=== PATIENT | male | born 1980 | race American Indian/Alaskan Native ===

== ENCOUNTER 2024-10-06 06:13 | Day surgery (SDC) | payer OTHER, SELFPAY ==
[2024-10-06 06:25] VITALS: BMI 26.5
[2024-10-06 06:26] VITALS: BMI 26.5
[2024-10-06 06:29] VITALS: BP 156/107
[2024-10-06] MEDS: TYLENOL 1000 MG PO (06:37)
[2024-10-06 08:06] VITALS: BP 117/78
[2024-10-06 08:20] VITALS: BP 115/77
[2024-10-06 08:21] VITALS: BP 115/77
[2024-10-06 08:36] VITALS: BP 125/90
== END 2024-10-06 08:45 | disposition home or self-care (01) ==
LOC: SDS 06:13
PROVIDERS: ATTENDING PHYSICIAN Surgery; FAMILY PHYSICIAN Family Medicine
DX: L72.0 Epidermal cyst (principal)
CPT/HCPCS: 11406; 88304

== ENCOUNTER 2025-09-27 02:07 | Inpatient (IN) | payer OTHER, SELFPAY ==
[2025-09-26] VITALS (9 sets, daily range): BP systolic 167–202; BP diastolic 112–134; BMI 26.2
[2025-09-26 21:31] LABS: Glucose - Point of Care 105 mg/dl (70-99)
[2025-09-26 21:46] LABS: Hematocrit 42.9 % (39.0-52.0); Hemoglobin 15.3 g/dL (13.0-18.0); Mean Corp Hgb Conc. 35.7 g/dL (33.0-37.0); Mean Corpuscular Volume 83.6 fL (80.0-94.0); Nucleated Red Blood Cells % 0 % (-); Platelet Count 255 10^3/uL (130-400); Red Cell Dist. Width 12.4 % (11.5-14.5)
--- NOTE | 2025-09-26 21:52 | ED.CVA ---
History of Present Illness
General
Chief Complaint: CVA/TIA Symptoms
Time Seen by Provider: 09/26/25 21:32
Onset of Stroke Symptoms
Onset of symptoms known: Yes
Date of onset of symptoms: 09/26/25
History of Present Illness
History of Present Illness:
FOCUSED PAST MEDICAL HISTORY
- Hyperlipidemia
REVIEW OF OLD RECORDS
- 1 year ago, the patient had a sebaceous cyst removed surgically here at [facility]
Note:
CHIEF COMPLAINT(S)
Ringing in the ears, blurred vision, difficulty speaking.
HISTORY OF PRESENT ILLNESS
The patient is a 45-year-old male who presented with new-onset symptoms of ringing in the ears, blurred vision, and difficulty speaking. These symptoms began around 8:40 PM while the patient was in bed preparing to sleep. He reported that the
symptoms started suddenly while he was sitting up and watching television. The patient experienced difficulty in verbal communication, which improved by the time he was in the ambulance. He estimates that his speech difficulties lasted approximately
five minutes. During the current evaluation, the patient noted that he continued to have a headache and a left-sided visual field deficit.
PHYSICAL EXAM
General: Alert, no acute distress.
Skin: Warm, dry.
Head: Normocephalic, atraumatic.
Neck: Supple, trachea midline.
Eye Ears, Nose, Mouth, and Throat: Oral mucosa moist. Visual field deficit noted on left side of right eye.
Cardiovascular: Normal peripheral perfusion, No edema.
Respiratory: Respirations are non-labored.
Gastrointestinal: Abdomen nondistended.
Back: Normal range of motion, Normal alignment.
Musculoskeletal: Normal range of motion, normal strength.
Neurological: Alert and oriented to person, place, and time. Speech clear during examination. The patient has left-sided homonymous hemianopsia. Stroke scale 2.
Psychiatric: Cooperative, appropriate mood & affect.
PROBLEM LIST
Acute Problem: Sudden onset of visual disturbances and difficulty speaking, ringing in the ears.
PLAN
Initiate a stroke alert for further investigation of potential cerebrovascular event.
DIFFERENTIAL DIAGNOSIS
The Differential Diagnosis includes, in no particular order and is not limited to:
1. Transient Ischemic Attack (TIA)
2. Stroke
3. Migraine with aura
4. Vestibular disorders
5. Epileptic seizure
6. Multiple sclerosis
7. Brain tumor
8. Acute labyrinthitis
9. Menieres disease
10. Hypertensive crisis
RADIOLOGY
- CT head showed a 3.9 cm arachnoid cyst in the right side of the posterior fossa with mild mass effect right cerebellar hemisphere, no bleed. Perfusion reviewed with stroke neurologist at [facility] in which stroke neurologist, Dr. Teran. CTA head
neck shows acute complete occlusion of P3 right posterior cerebral artery
EKG
- Sinus rhythm rate of 110
LABS
- CBC and chemistries unremarkable
UPDATE
-SUMMARY OF ENCOUNTER
The patient, a 45-year-old male, was seen in the emergency department due to sudden-onset symptoms of difficulty speaking, ringing in the ears, and visual disturbances. A stroke alert was initiated because of a noted visual change on the left side.
A CT scan revealed a cyst near the cerebellum, which did not explain the visual changes. The patients stroke scale score was 2, with visual deficit being the main issue, and no bleeding or major vessel occlusion was found in imaging. Management
included considering anti-platelet medications and addressing the high blood pressure. The neurologist and hospitalist were notified for further management.
DISPOSITION
Admit.
ASSESSMENT
Potential stroke with sudden visual disturbances and difficulty speaking, possibly exacerbated by hypertensive crisis.
EMERGENCY TREATMENTS ADMINISTERED
Labetalol administered to reduce high blood pressure.
MANAGEMENT OF THE PATIENTS CARE WAS DISCUSSED WITH
[facility] stroke neurologist, Dr. Teran
Dr. Caldwell
PLAN
Plan includes hospitalization for monitoring, gradual reduction of blood pressure, and administration of anti-platelet medications as recommended by affiliated experts.
MEDICATION RECONCILIATION
Administered Medication: Labetalol.
Prescribed Medication: Anti-platelet medications as recommended for stroke prevention.
MEDICAL DECISION MAKING
-Complexity of Data Reviewed: Chronic conditions affecting care include the potential differential diagnoses such as Transient Ischemic Attack (TIA), stroke, migraine with aura, vestibular disorders, epileptic seizure, multiple sclerosis, brain
tumor, acute labyrinthitis, Meniere�s disease, and hypertensive crisis.
-Data:
Category 1:
CT scan was reviewed, showing a cyst near the cerebellum without major vessel occlusion or bleeding.
Category 3:
Discussion of management with neurology and hospitalist teams regarding appropriate hypertension management and stroke care.
-Risk:
Prescription medication was prescribed: Anti-platelet medications.
DIAGNOSIS
Acute left homonymous hemianopia
Acute ischemic CVA
I discussed case with stroke neurologist at approximately 10 PM. The recommendation was for DAPT with 600 mg of Plavix and 325 mg of aspirin. He also recommended to reduce the blood pressure by 25% at 24 hours. He reviewed the imaging.
Stroke neurologist called back and started interviewing the patient at about 10:42 PM via telestroke. The stroke neurologist called me back indicating that the patient actually just had a superior homonymous hemianopia
Phy Exam
Physical Exam
Physical Exam:
See HPI
Scores
NIH Stroke Score
Level of Consciousness: 0 - Alert
LOC Questions: 0-Answers both correctly (Did struggle with naming the month slightly)
LOC Commands: 0-Performs both correctly
Best Horizontal Gaze: 0-Normal
Visual Dominguez: 2=Full hemianopia
Facial Palsy: 0=Normal, symmetrical
Motor - Right Arm: 0=No drift 10 seconds
Motor - Left Arm: 0=No drift 10 seconds
Motor - Right Le-No drift 5 seconds
Motor - Left Le-No drift 5 seconds
Limb Ataxia: 0-Absent
Sensation: 0-Normal
Best Language: 0-No aphasia
Dysarthria: 0-Normal
Extinction and Inattention: 0-No abnormality
NIH Total Score:: 2
Course
Orders/Labs/Results
Orders:
Orders
09/26/25 21:32
Electrocardiogram (*1) Urgent
Reason for Study: Other
Other Reason for Exam: Possible Stroke
Bedside Glucose- Treatment ONCE
Cardiac Monitoring- Treatment ONCE
EKG- Treatment ONCE
IV Insert/Care/Rem.- Treatment PRN
O2 Therapy [RESP] Urgent
Titrate/Wean O2 to maintain O2 sat greater than (%): 93
Special Instructions: MAINTAIN CONTINUOUS O2 SATS > OR = 93%
09/26/25 21:35
CT BRAIN PERF STROKE ALERT Urgent
Comment:
Reason For Exam: BURCH, L field cut, resolved aphasia
CT HEAD STROKE ALERT W/o Cont Urgent
Comment:
Reason For Exam: BURCH, L field cut, resolved aphasia
CT HEAD/NECK ANG STROKE ALERT Urgent
Comment:
Reason For Exam: BURCH, L field cut, resolved aphasia
09/26/25 21:37
Complete Blood Count/With Diff Urgent
Comprehensive Metabolic Panel Urgent
PTT Urgent
Prothrombin Time Urgent
Troponin I Urgent
09/26/25 22:07
Labetalol HCl [Trandate] 10 mg IV NOW STA
09/26/25 22:18
Aspirin 325 mg PO NOW STA
Clopidogrel Bisulfate [Plavix] 600 mg PO NOW STA
09/26/25 23:12
Admit/Transfer Patient As Directed
Co-Sign Provider:
Level of Care: Inpatient admission
Assign to:: Telemetry
Physician / Group: Gavin
Diagnosis: Acute Stroke
Reason for Telemetry: CVA/TIA
Date to Stop Telemetry: 09/29/25
Time to Stop Telemetry: 11:00
Reason for Hospitalization: Brain MRI - Stroke Work-Up
Expected length of stay greater than two midnights?: Yes
ELOS- Estimated Length of Stay in days: 3
I certify the patient meets the requirements for IP care: Yes
09/26/25 23:13
PRN Pain Medication Management As Directed
May give lesser potent ordered pain med per pt: Yes
preference::
Protocol:: Medication orders for pain may be administered in a
manner that supports deferring to patient preference
when the pt is:
- Requesting an ordered lesser potent pain medication.
Least to most potent pain medications are defined
as: acetaminophen < NSAID < tramadol < opioids
(morphine, oxycodone, hydromorphone).
- Requesting a lesser dose of the same medication IF
ORDERED.
- Requesting a less intrusive route of administration
if both routes are prescribed by the provider (PO <
IV).
09/26/25 23:15
Code Status As Directed
Resuscitation Status: Full Code
09/26/25 23:22
0.9% Sodium Chloride 1000 ml [Nss] 1,000 ml IV 100 mls/hr
09/29/25 11:00
DC Protocol for Telemetry ONCE
Abnormal Lab Results
09/26/25 09/26/25
21:29 21:37
MPV 10.7 H fL
(7.4-10.4)
Abs Immat Gran (auto) 0.1 H 10^3/uL
(0-0.05)
Immature Gran % 1.1 H %
(0-0.5)
Neutrophils % 42.1 L %
(42.2-75.2)
Monocytes % 10.1 H %
(1.7-9.3)
Glucose 116 H mg/dl
(70-99)
POC Glucose 105 H mg/dl
(70-99)
09/26/25 21:37
09/26/25 21:37
Vital Signs
Initial and Last Documented VS:
Initial Vital Signs
BP
202/128
09/26/25 21:25
Last Documented Vital Signs
Temp Pulse Resp BP Pulse Ox
37.1 C 89 17 167/112 96
09/27/25 00:00 09/26/25 23:45 09/26/25 23:45 09/26/25 23:30 09/26/25 23:45
*Pulse Oximetry
SaO2: 99
Oxygen Mode of Delivery: Room air
Patient hypoxic: no
*Critical Care Note
Total Time (30-74mins, 75-104mins- exclusive of procedures): Not Applicable
ED Attending Note
-
Portions of this chart may have been created with voice recognition software.� Occasional wrong word or��sound alike� substitutions may have occurred due to the inherent limitations of voice recognition software.
Discharge Plan
Departure
Patient Disposition: Admit
Date of Disposition: 09/26/25
Time of Disposition: 23:43
Presentation/result/management discussed w/ accepting MD/DO: Hospitalist
Discharge Problem:
Hemianopia, homonymous, left
Prescriptions:
No Action
No Current Medications
0
Referrals:
NONE,* [Active, Internal Medicine]
Interventions
Interventions:
*Risk Screen - Suicide Last Done: 09/26/25 22:09
*General Assessment Last Done: 09/26/25 23:46
*Neglect/Abuse Screening Last Done: 09/26/25 22:09
*ED- Fall Risk Assessment Last Done: 09/26/25 22:09
*ED COVID-19 Vaccine History Last Done: 09/26/25 22:09
*ED Influenza Vaccine History Last Done: 09/26/25 22:09
*Nursing Disposition Last Done: 09/26/25 23:46
ED- Pulmonary Assessment Last Done: 09/26/25 21:55
ED- Neurological Assessment Last Done: 09/26/25 21:52
ED- Cardiac Assessment Last Done: 09/26/25 21:55
ED Swallowing Screen Last Done: 09/26/25 22:32
Discharge Date and Time
Discharge Date/Time: 09/27/25 00:21
Print Language: CZECH
[2025-09-26 21:53] LABS: INR 0.86; PT 12.2 Sec (11.4-14.6)
[2025-09-26 21:54] LABS: APTT 28.6 Sec (23.4-35.0)
[2025-09-26 22:00] LABS: ALT (SGPT) 25 U/L (0-50); AST (SGOT) 40 U/L (17-59); Albumin 4.9 g/dl (3.5-5.0); Alkaline Phosphatase 107 U/L (38-126); Blood Urea Nitrogen 12 mg/dl (9-20); Calcium 10.1 mg/dl (8.4-10.2); Carbon Dioxide 25 mmol/L (22-30); Chloride 101 mmol/L (98-107); Estimated Creatinine Clearance 122 ml/min; Glucose 116 mg/dl (70-99); Potassium 4.2 mmol/L (3.5-5.1); Sodium 135 mmol/L (135-145); Total Protein 8.2 g/dl (6.3-8.2); eGFR > 60.00
[2025-09-26 22:11] LABS: Troponin I < 0.012 ng/ml
[2025-09-26] MEDS: TRANDATE 10 MG IV (22:17)
[2025-09-26] MEDS: PLAVIX 600 MG PO (22:27)
[2025-09-26] MEDS: ASPIRIN 325 MG PO (22:27)
--- NOTE | 2025-09-26 23:19 | HPS.HSE ---
Addendum entered and electronically signed by Hamzah Alonso DO 09/26/25 23:53:
Patient seen and examined independently. Agree with findings and plan as set forth by Karla Burton PA-C.
Patient is a 45y M with no significant PMH and on no medications who presents to ED complaining of headache and vision changes. Patient states that he developed sudden onset of dizziness, ringing in the ears, R posterior headache and black spots
in L visual field. Symptoms started this evening around 8:40 PM. Patient reports previous episodes of transient vision changes, 'black spots' that have been occurring off-and-on for the past week or so. Patient presented to the ED for further
evaluation and treatment. he was noted to be markedly hypertensive.
Evaluation in the ED included CTA showing acute occlusion of R P3 segment and CT perfusion study showing correlating area of decreased perfusion in the R occipital lobe.
Case was reviewed with [facility] Tel[facility]. TNK was not recommended. Patient was started on DAPT.
Ass:
Acute R Occipital CVA
Hypertension
Plan:
Admit for further evaluation and treatment.
Continue DAPT. Check lipid panel, A1C, etc.
Follow neurologic exam for any changes.
Neurology evaluation.
MRI in AM. Echo.
PT / OT evaluations.
Adjust med regimen for improved BP control prior to discharge.
Permissive hypertension for now with PRN med available for BP > 220 systolic or 120 diastolic.
Original Note:
Family Physician
-
Family Physician: Prudencio Carrasquillo
Chief Complaint
-
Dizziness
History of Present Illness
Patient is a 45 y/o male without significant past medical history who presents with dizziness associated with ringing in the ears and black spots in visual field. Patient reports onset of symptoms around 8:40PM. Patient reports over the past week
he has had several transient episodes of black spots in his visual field. Today symptoms were much worse with dizziness, and a transient episodes of difficulty speaking prompting him to come to the emergency department for evaluation.
Medical History
Past Medical History
Past Medical History: Reports None
Past Surgical History: Reports Other
Additional Past Surgical History:
Fractured Hand Repair
Sebaceous Cyst Excision
Social History
Tobacco: Non-smoker
Alcohol: Occasional
Personal:
Living: With Family
Family History
Family History: Other (Father: Heart Disase)
Allergies / Home Medications
Allergies reflects when Allergies were last updated in [facility].
Home Medications with original date entered in [facility]
Allergy/Medication List:
Allergies
Allergy/AdvReac Type Severity Reaction Status Date / Time
No Known Allergies Allergy Verified 09/26/25 23:02
Home Medications
No Meds [No Current Medications] 09/26/25
Review of Systems
-
A 12 point ROS was completed and negative except as noted: Yes
Constitutional: Denies Fever
Respiratory: Denies Cough or Trouble Breathing
Cardiac: Denies Chest Pain or Palpitations
Physical Exam
Vital Signs
Vital Signs
Temp Pulse Resp BP Pulse Ox
99.6 F 87 17 169/134 97
09/26/25 21:26 09/26/25 23:00 09/26/25 23:00 09/26/25 22:45 09/26/25 23:00
Physical Exam
General: Comfortable and Conversant
HEENT: Anicteric and Moist mucous membranes
Respiratory: Clear and Non Labored Respirations
Cardiac: S1/S2 and Regular Rhythm; No Murmur
GI: Soft and Non Tender
Rectal: Deferred by Provider
Genito-urinary: Clear Urine
Musculoskeletal: No Clubbing, No Cyanosis and No Edema
Skin: Warm and Dry
Neuro: Awake, Alert, Oriented, No Motor Deficits and Other (Left Superior Homonymous Quadrantanopia )
Psych: Calm
Laboratory Results
-
09/26/25 21:37
09/26/25 21:37
Laboratory Results
PT 12.2 Sec (11.4-14.6) 09/26/25 21:37
INR 0.86 09/26/25 21:37
APTT 28.6 Sec (23.4-35.0) 09/26/25 21:37
Total Bilirubin 0.5 mg/dl (0.2-1.3) 09/26/25 21:37
AST 40 U/L (17-59) 09/26/25 21:
ALT 25 U/L (0-50) 09/26/25 21:37
Alkaline Phosphatase 107 U/L (38-126) 09/26/25 21:37
Troponin I < 0.012 ng/ml 09/26/25 21:37
Data Reviewed
-
CT Scan: Report Reviewed by me
Lab Data: Labs Reviewed by me
Impression/Plan
-
Acute Stroke secondary to occlusion of P3 segment of right posterior cerebral artery
-Consult Neurology
-Check Brain MRI
-Check Echocardiogram with bubble
-Check HgbA1c and Lipid Panel
-Consult PT/OT
-Patient received clopidogrel 600mg and aspirin 325mg in ED - Continue aspirin 81mg Daily and clopidogrel 75mg Daily
-Start atorvastatin
Uncontrolled Hypertension
-Allow for permissive hypertension (220/120 or MAP 140)
-Add hydralazine PRN
DVT proph: SCDs
Code Status: Full Code
[2025-09-27] VITALS (10 sets, daily range): BP systolic 149–185; BP diastolic 88–114; PULSE 88; O2SAT 98; BMI 25.6
[2025-09-27] MEDS: NSS 1000 IV (03:25)
--- NOTE | 2025-09-27 03:48 | PTCARENOTE ---
Pt arrived to unit [facility] approx 1230 am. Pt is oriented to unit, call fields in reach, bed locked. Pt chart was d/c'd upon arrival to unit. Charge nurse/nursing supervisor type disk quality control notified. Pt chart corrected few hours after pt arrival to unit. NSS IVF given
late. Pt was not on unit at time ordered. Pt NIH upon arrival to unit was 3.
[2025-09-27 06:44] LABS: Hematocrit 39.8 % (39.0-52.0); Hemoglobin 14.3 g/dL (13.0-18.0); Mean Corp Hgb Conc. 35.9 g/dL (33.0-37.0); Mean Corpuscular Volume 80.7 fL (80.0-94.0); Platelet Count 256 10^3/uL (130-400); Red Cell Dist. Width 12.5 % (11.5-14.5)
[2025-09-27] MEDS: PLAVIX 75 MG PO (08:12)
[2025-09-27] MEDS: LOW STRENGTH ASPIRIN 81 MG PO (08:12)
--- NOTE | 2025-09-27 09:32 | CON.NEURO4 ---
Addendum entered and electronically signed by Cleveland Caldwell MD 09/27/25 11:10:
Studies independently reviewed.
I have personally examined the patient. I reviewed and agree with the CUT PRESS OPERATOR's Note.
My addenda:
Awake, alert, interactive. No acute distress.
Speech intact.
Follows 2-step requests w/o difficulty. No tremor.
Extra-ocular movements grossly intact.
Facial movements full and symmetric. Hearing intact to normal conversational volume.
Normal UE movements bilaterally.
Neck: full ROM.
Chest: no dyspnea
Heart: no JVD
Ext: (-) Clubbing, (-) Cyanosis, (-) Edema
IMPRESSIONS/RECOMMENDATIONS:
Abrupt onset of visual loss in the left suggesting a quadrantanopia which is most likely secondary to an acute ischemic stroke. Differential diagnosis includes reversible cerebrovascular syndrome.
The possibility of a hypercoagulable state as well as thromboembolic source are not illuminated at this time.
Continue newly initiated aspirin and clopidogrel; continue aspirin lifelong and discontinue clopidogrel after 21 doses
Check echocardiogram with likely need for EHSAN based on cardiology evaluation
Check lipid profile
Goal of mild hypertension until 24 hours after stroke onset at which time normotension would be the goal. Mild hypertension is suggested based on the patient's accelerated hypertension during his initial presentation
Provide medical educational materials
D/W patient / family
All questions answered.
Will continue to follow patient.
Original Note:
Documented by User: Bibi Bro NP 09/27/25 10:35
Consultation - Neurology 4
-
CONSULTING PHYSICIAN: Cleveland Caldwell MD
REFERRING PHYSICIAN: Hospitalists/Karla Burton PA-C
DICTATED BY: LETICIA Rivas
DATE/TIME OF REQUEST: 09/26/25
DATE/TIME OF CONSULTATION: 09/27/25
Reason for Consultation: Stroke Alert
History of Present Illness:
This is a 45-year-old right-handed male who has presented to the hospital on 09/26/25 with report of dizziness, dysarthria, and left-sided vision loss. Patient reports that for the past week he has occasional seen 'flickering stars' in his vision,
sometimes associated with a headache. Yesterday (09/26/25), he was in his usual state when at 2044 he was sitting on the edge of his been when his suddenly became dizzy, heard a strange sound in both ears lasting a few seconds, and his speech became
dysarthric for 2-3 minutes. His called EMS and upon their arrival the patient noticed that he could only see one stem roller or crusher operator, he was unable to see the second person standing on his left side. He also notes developing a right-sided headache and
neck discomfort. NIHSS on arrival was 2 for a full hemianopia. CT head was obtained and is negative for any acute abnormalities, ASPECT score 10. CTA head/neck demonstrated near occlusion of the proximal right vertebral artery and complete occlusion
of the right [employer] P3 segment. CT brain perfusion was negative for any area of core infarct but demonstrated a 23ml ischemic penumbra in the right occipital lobe, consistent with the patient's symptoms. Per Telestroke neurology consultation, he was
not a candidate for TNK due to low NIHSS. He was not a candidate for IAT due to P3 occlusion being too distal for vascular access. He was loaded with DAPT in the ER. Patient reports that today (09/27/25), his left-sided vision loss remains unchanged.
He describes this as seeing 'black spots' in his left-sided vision. His head and neck pain have resolved. He denies any dizziness, speech/swallow difficulty, numbness, and weakness. He denies any history of stroke or blood-clotting issues in the
past and was not taking any blood thinning medications.
Past Medical History: None.
Surgical History: Sebaceous cyst removal, fractured hand repair.
Family History: Paternal uncle- stroke in his 60's.
Social History: Occasional alcohol. Denies tobacco and illicit drug use.
Allergies: No known allergies.
Home Medications: See below.
Review of Symptoms:
Patient denies any fever, headache, chest pain, shortness of breath, GI or symptoms.
�Per the HPI.�All systems are reviewed negative except above.
Physical Exam:
The patient is afebrile, abdomen is nondistended, breathing is unlabored, skin is warm and dry, no edema.
NIH Stroke Scale:
I performed the NIH stroke scale on the patient on 09/27/25 at 0945. The patient scored 1 points on the NIH stroke scale assessment, which were assigned as follows: See below.
Neurologic Examination:
The patient is awake, alert and oriented x 3. He is able to follow commands and answer questions appropriately. There is no aphasia or dysarthria. On cranial nerve assessment, pupils are 3 mm bilateral, round and reactive to light and
accommodation. There is a left upper quadrant hemianopia. Extraocular movements are intact. Facial sensations are intact and bilaterally symmetrical, there is no facial asymmetry. Hearing is intact bilaterally to normal conversation volume. Tongue
palate and uvula are midline. Sternocleidomastoid strengths are full bilaterally. Motor strengths are 5/5 bilateral upper and lower extremities on medical research [place] scale. There is no drift or involuntary movement noted. Deep tendon reflexes
are 2+ bilateral upper and lower extremities and Babinski is absent bilaterally. There was no extinction noted on double simultaneous stimulation. Coordination is intact by finger to nose bilaterally.
Lab Results: See below.
Neuro Imaging:
1. CT Head 09/26/25: No CT evidence for acute intracranial hemorrhage or transcortical infarct. 3.9 cm arachnoid cyst in the right side of the posterior fossa causing mild mass effect on the right cerebellar hemisphere and cerebellar vermis. Severe
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 ASPECT score: 10.
2. CTA head/neck 09/26/25: ACUTE NEAR OCCLUSION of the PROXIMAL RIGHT VERTEBRAL ARTERY at the origin with a 5 mm segment of severe luminal narrowing caused by thrombosis, embolus, or focal dissection. Moderate to severe hypoplasia of the left
vertebral artery. No CTA evidence for stenosis, occlusion, or dissection in either internal carotid artery. ACUTE COMPLETE OCCLUSION of the P3 (quadrigeminal segment) of the RIGHT POSTERIOR CEREBRAL ARTERY accounting for the ischemic changes in the
right occipital lobe seen on the CT brain perfusion examination. Moderate hypoplasia of the P1 segment of the left posterior cerebral artery. 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 3.0 cm arachnoid
cyst in the right side of the posterior fossa.
3. CT brain perfusion 09/26/25: CBF 0ml, Tmax 23ml.
Differentials for the patient's presentation include:
1. Left upper quadrant hemianopsia likely due to an acute right occipital ischemic stroke in the setting of R [employer] P3 occlusion; etiology is concerning for a cardioembolic source.
2. Right posterior fossa arachnoid cyst, asymptomatic.
Patient has the following risk factors for their symptoms: None.
IV Tenecteplase/IAT candidacy: Per Telestroke neurology consultation, he was not a candidate for TNK due to low NIHSS. He was not a candidate for IAT due to P3 occlusion being too distal for vascular access.
Recommendations:
-Continue DAPT with aspirin 81mg and clopidogrel 75mg daily for 21 days. After 21 days, stop clopidogrel and continue aspirin 81mg daily monotherapy.
-Permissive hypertension SBP>220, DBP>120 until 2039 tonight, then goal normotension.
-MRI brain noncontrast pending.
-TTE pending. If this is normal, would consider EHSAN given young age of the patient.
-LDL goal <70. LDL is 169. Continue newly initiated atorvastatin 80mg daily.
-Goal normoglycemia, hbA1c is 5.2.
-Checking blood work for metabolic abnormalities.
-PT/OT/ST evaluations.
-NIHSS and neurological checks per unit guidelines.
-Provide patient with a stroke education packet.
-DVT prophylaxis.
-No driving. Will need visual field testing by ophthalmology as an outpatient to determine driving safety.
Discussed patient care with: Dr. Cadlwell, the patient, patient's spouse
Vital Signs and Labs
-
Vital Signs and Labs:
Vital Signs
Temp Pulse Resp BP Pulse Ox
98.4 F 80 16 174/107 98
09/27/25 07:00 09/27/25 07:00 09/27/25 07:00 09/27/25 07:00 09/27/25 07:00
Lab Results
09/27/25 06:35
PT 12.2 Sec (11.4-14.6) 09/26/25 21:37
INR 0.86 09/26/25 21:37
APTT 28.6 Sec (23.4-35.0) 09/26/25 21:37
Sodium Cancelled 09/27/25 06:35
Potassium Cancelled 09/27/25 06:35
BUN Cancelled 09/27/25 06:35
Glucose Cancelled 09/27/25 06:35
Calcium Cancelled 09/27/25 06:35
LDL Cholesterol, Calc Cancelled 09/27/25 06:35
Medications
-
Active Medications
Generic Name Dose Route Start Last Admin
Trade Name Freq PRN Reason Stop Dose Admin
Acetaminophen 650 mg 09/27/25 02:28
Acetaminophen 650 Mg Rectal Suppository RECTAL 10/25/25 02:27
Q4HPRN PRN
BURCH, mild pain, or temp >100.4F
Acetaminophen 650 mg 09/27/25 02:28
Acetaminophen 325 Mg Tablet PO 10/25/25 02:27
Q4HPRN PRN
BURCH, mild pain, or temp >100.4F
Aspirin 81 mg 09/27/25 08:00 09/27/25 08:12
Aspirin 81 Mg Chewable Tablet PO 10/25/25 07:59 81 mg
DAILY ZAINA Administration
Atorvastatin Calcium 40 mg 09/27/25 18:00
Atorvastatin (Lipitor) 40 Mg Tablet PO 10/25/25 17:59
QPM ZAINA
Clopidogrel Bisulfate 75 mg 09/27/25 08:00 09/27/25 08:12
Clopidogrel 75 Mg Tablet PO 10/25/25 07:59 75 mg
DAILY ZAINA Administration
Hydralazine HCl 5 mg 09/27/25 02:28
Hydralazine 20 Mg/Ml Vial IV 10/25/25 02:27
Q4HPRN PRN
SBP>220, or DBP>120
Sodium Chloride 0 flush 09/27/25 03:00
Sodium Chloride 0.9% (Flush) Syringe IV 10/25/25 02:59
PER PROTOCOL ZAINA
Home Medications
�Medication �Instructions �Recorded
No Meds [No Current Medications] 09/26/25
NIH Stroke Score
Subsequent NIH Scale
Date of Subsequent NIH Scale: 09/27/25
Time of Subsequent NIH Scale: 09:45
NIH Stroke Score
Level of Consciousness: 0 - Alert
LOC Questions: 0-Answers both correctly
LOC Commands: 0-Performs both correctly
Best Horizontal Gaze: 0-Normal
Visual Dominguez: 1=Partial hemianopia
Facial Palsy: 0=Normal, symmetrical
Motor - Right Arm: 0=No drift 10 seconds
Motor - Left Arm: 0=No drift 10 seconds
Motor - Right Le-No drift 5 seconds
Motor - Left Le-No drift 5 seconds
Limb Ataxia: 0-Absent
Sensation: 0-Normal
Best Language: 0-No aphasia
Dysarthria: 0-Normal
Extinction and Inattention: 0-No abnormality
NIH Total Score:: 1
Modified Alvin (mRS) Score
Modified Alvin Scale (mRS): Moderate disability. Requires some help, able to walk unassisted.
Score: 3
Alteplase Contraindication
Inclusion and Exclusion criteria reviewed: Yes
IAT Contraindications: NIHSS < 6

Documented by User: Cleveland Caldwell MD 09/27/25 11:04
NIH Stroke Score
NIH Stroke Score
NIH Total Score:: 1
Modified Alvin (mRS) Score
Score: 3
Past History
Past History
ED Past Medical History: None
ED Past Surgical History: None
Medications
-
Medications:
Generic Name Dose Route Start Last Admin
Trade Name Freq PRN Reason Stop Dose Admin
Acetaminophen 650 mg 09/27/25 02:28
Acetaminophen 650 Mg Rectal Suppository RECTAL 10/25/25 02:27
Q4HPRN PRN
BURCH, mild pain, or temp >100.4F
Acetaminophen 650 mg 09/27/25 02:28
Acetaminophen 325 Mg Tablet PO 10/25/25 02:27
Q4HPRN PRN
BURCH, mild pain, or temp >100.4F
Aspirin 81 mg 09/27/25 08:00 09/27/25 08:12
Aspirin 81 Mg Chewable Tablet PO 10/25/25 07:59 81 mg
DAILY ZAINA Administration
Atorvastatin Calcium 80 mg 09/27/25 18:00
Atorvastatin (Lipitor) 40 Mg Tablet PO 10/25/25 17:59
QPM ZAINA
Clopidogrel Bisulfate 75 mg 09/27/25 08:00 09/27/25 08:12
Clopidogrel 75 Mg Tablet PO 10/25/25 07:59 75 mg
DAILY ZAINA Administration
Hydralazine HCl 5 mg 09/27/25 02:28
Hydralazine 20 Mg/Ml Vial IV 10/25/25 02:27
Q4HPRN PRN
SBP>220, or DBP>120
Sodium Chloride 0 flush 09/27/25 03:00
Sodium Chloride 0.9% (Flush) Syringe IV 10/25/25 02:59
PER PROTOCOL ZAINA
[2025-09-27 09:40] LABS: Glycohemoglobin (HgbA1c) 5.2 % (4.0-5.9)
[2025-09-27 10:24] LABS: Blood Urea Nitrogen 8 mg/dl (9-20); Calcium 9.7 mg/dl (8.4-10.2); Carbon Dioxide 23 mmol/L (22-30); Chloride 104 mmol/L (98-107); Estimated Creatinine Clearance > 125 ml/min; Glucose 116 mg/dl (70-99); HDL Cholesterol 43 mg/dl; LDL Cholesterol, Calculated 169 mg/dl; Magnesium 2.0 mg/dl (1.6-2.3); Potassium 3.7 mmol/L (3.5-5.1); Sodium 136 mmol/L (135-145); Very Low Density Lipoprotein 28 mg/dl (0-30); eGFR > 60.00
--- NOTE | 2025-09-27 10:26 | PTCARENOTE ---
Pt in Cardiac Services for Echo Bubble Study. Right antecubital IV site utilized, site clear, no redness, no edema. Protocol completed per protocol with aseptic technique, pt tolerated procedure well, offers no complaints. No change in status.
--- NOTE | 2025-09-27 10:31 | W.PN.HOSP.TC ---
Addendum entered and electronically signed by Yobani Mcneill DO 09/28/25 09:10:
Hypertension on arrival is reactive secondary to acute CVA, not hypertensive urgency or emergency
Original Note:
Today's Communication/Plan
-
Brain MRI pending
Echo pending
Cardiology consult
Assessment / Plan
Assessment / Plan
Patient is a 45 y/o male without significant past medical history who presents with dizziness associated with ringing in the ears and black spots in visual field. Patient reports over the past week he has had several transient episodes of black
spots in his visual field. 09/26 symptoms were much worse with dizziness, and a transient episodes of difficulty speaking prompting him to come to the emergency department for evaluation. In the ED CT head showed no intracranial abnormalities CTA
right [employer] right vertebral artery occlusion, arachnoid cyst with mass effect, patient was given aspirin and Plavix, and was determined to not be a TNK candidate. Patient was admitted for further stroke workup and neurology was consulted. Brain MRI
pending echo pending lipid panel with LDL 169
#CVA
Acute Stroke secondary to occlusion of t of right posterior cerebral artery, right vertebral artery seen on CTA
CT head with no acute bleed, 3.9 cm arachnoid cyst causing mild mass effect on right cerebrallum and cerebellar vermis
S/p aspirin Plavix load in the ED
Permissive hypertension for 24 hours
-Consult Neurology
-Consult cardiology
- Brain MRI pending
-Echocardiogram with bubble pending
-Check HgbA1c
- Lipid Panel total cholesterol 240, triglycerides 140, LDL 169, VLDL 28, HDL 43
-Consult PT/OT, no dysphagia or dysarthria
- Continue aspirin 81mg Daily and clopidogrel 75mg Daily
- atorvastatin 80 mg
#Uncontrolled Hypertension
On presentation 202/128
-Allow for permissive hypertension (220/120 or MAP 140)
-Add hydralazine PRN
DVT proph: SCDs
Code Status: Full Code
Anticipated Discharge: 24 - 48 hours
Subjective/Interval History
-
Patient was seen at bedside with cousin. He reports continuing visual deficits with no motor or sensory deficits, reported slurred speech when this episode started around 8:30 PM but resolved by the time he came to the ED. He has never had any
prior similar symptoms, and reports medical history of high cholesterol which is being managed with diet. He reported no palpitations or chest pain no shortness of breath nausea vomiting. Reports no history of recent long distance travel. Date of
Service: September 27, 2025
Objective Data
-
Labs:
Laboratory Results
09/27/25 09/27/25
06:35 08:59
WBC 6.1
Hgb 14.3
Hct 39.8
Plt Count 256
Sodium Cancelled 136
Potassium Cancelled 3.7
Chloride Cancelled 104
Carbon Dioxide Cancelled 23
BUN Cancelled 8 L
Creatinine Cancelled 0.7
Glucose Cancelled 116 H
Calcium Cancelled 9.7
Vital Signs:
Vital Signs
Temp Pulse Resp BP Pulse Ox
98.4 F 80 16 174/107 98
09/27/25 07:00 09/27/25 07:00 09/27/25 07:00 09/27/25 07:00 09/27/25 07:00
Review of Systems
-
History Source: Patient and Family
Constitutional: Denies Fever or Chills
EENT: Reports Decreased Vision; Denies Sore Throat or Runny Nose
Respiratory: Denies Cough or Trouble Breathing
Cardiac: Denies Chest Pain or Palpitations
Abdomen/GI: Denies Abdominal Pain, Nausea, Vomiting, Diarrhea, Constipated or Bloody Stools
Genitourinary: Denies Dysuria
Neuro: Reports Ataxia; Denies Headache, Weakness or Numbness
Physical Exam
-
General: Well Developed, Well Nourished, No Apparent Distress and Comfortable; Negative Fever
HEENT: Normocephalic and Atraumatic
Respiratory: Clear to Auscultation and Non Labored Respirations; Negative Wheezes or Crackles
Cardiac: Regular Rhythm and S1/S2; Negative Murmur
GI: Soft, Nontender, Nondistended and Normal Bowel Sounds
Musculoskeletal: No Clubbing and No Edema
Skin: Warm and Dry
Neuro: Awake, Alert, Oriented, AO x 3, No Motor Deficits, Nonfocal/Grossly Intact, Central Nerve's Intact, No Sensory Deficits and Other (Visual field deficits left upper field); Negative Slurred Speech or Facial Droop
[2025-09-27 12:56] LABS: C-Reactive Protein 10.60 mg/L (0.0-10.00)
[2025-09-27 14:12] LABS: Folate 8.8 ng/ml (2.76-20); Vitamin B12 200 pg/ml (239-931)
--- NOTE | 2025-09-27 14:55 | PTOTSP ---
Speech Language Pathology
Pt seen for clinical bedside swallow evaluation. P.O. trials of puree, regular solids, and thin liquids provided. Adequate mastication, bolus formation, and A-P transit noted with no oral residue. No overt signs of aspiration.
Recommend:
(1) Regular solids/thin liquids
(2) General aspiration precautions
(3) Meds as tolerated
(4) SUBSCRIPTION CLERK to follow for cognitive-linguistic evaluation
--- NOTE | 2025-09-27 15:29 | CON.CAR ---
Addendum entered and electronically signed by Refugio Peñaloza DO 09/27/25 17:23:
I saw and examined the patient.
The Charhouse Worker's note was reviewed and I agree with the note.
Comment:
Plan:
Reviewed EHSAN with patient and at bedside. He was agreeable to this. Discussed risks and benefits
If EHSAN is negative, would consider 2 to 4-week monitor to evaluate for atrial arrhythmia.
If monitor is negative, could consider an implantable loop recorder.
All of the above was discussed.
His echo was unremarkable with preserved LV function and negative agitated saline bubble study
LDL 169. LDL goal is at least less than 100, and could be considered less than 70. There is family history of premature CAD in his father. Agree with statin therapy.
Blood pressure control as per neurology.
Brain MRI and further neuro input pending
Discussed with at bedside
Original Note:
Consultation
Consultation Request
Date/Time Consultation Performed: 09/27/25
Requesting Provider: Dr. Mcneill
Performing Provider: Lawanda Velazquez PA-C for Dr. Peñaloza
Reason for Consultation: CVA, eval for EHSAN
Medical History
-
Chief Complaint: Dizziness, left-sided vision loss
History of Present Illness:
Patient is a 45-year-old male without significant past medical history who presented to [facility] due to complaints of dizziness, and left-sided vision loss. He reported occasional headaches and 'flickering stars' in his vision for the week prior.
Then had episode sitting on the edge of his bed where he felt dizzy and had speech difficulty for 2 to 3 minutes. His called 911, and medics noted a visual field cut. Head and neck CTA showed acute near occlusion of proximal right vertebral
artery and acute complete occlusion of P3 of right posterior cerebral artery. He was not felt to be a candidate for TNK due to low stroke score. Brain MRI pending. Cardiology consulted for evaluation of CVA of unknown etiology. Denies CP, SOB,
palpitations. Denies substance use/abuse, new medications or supplements.
PMH:
R arm fracture
Past Medical History
Past Medical History: Other (in HPI)
Social History
Tobacco: Non-Smoker
Alcohol: Occasional
Personal:
Living: With Family
Employment: Employed ([employer])
Family History
Family History: CAD (father) and Other (CVA in uncle)
Allergies / Home Medications
Allergy/AdvReac Type Severity Reaction Status Date / Time
No Known Allergies Allergy Verified 09/26/25 23:02
�Medication �Instructions �Recorded �Confirmed �Type
No Meds [No Current Medications] 09/26/25 09/26/25 History
Review of Systems
-
History Source: Patient
All other systems: Negative unless noted
Physical Exam
Vital Signs
Temp Pulse Resp BP Pulse Ox
98.4 F 84 12 185/114 96
09/27/25 15:00 09/27/25 15:00 09/27/25 15:00 09/27/25 15:00 09/27/25 15:00
Lab Results
09/27/25 06:35
09/27/25 08:59
Troponin I < 0.012 ng/ml 09/26/25 21:37
Physical Exam
General: No Apparent Distress and Comfortable
HEENT: Normocephalic, Anicteric and Moist Mucous Membranes
Respiratory: Clear and Non Labored Respirations
Cardiac: S1/S2 and Regular Rhythm
GI: Soft, Non Tender, Non Distended and Normal Bowel Sounds
Musculoskeletal: No Clubbing, No Cyanosis and No Edema
Skin: Warm and Dry
Neuro: AO x 3
Impression / Plan
-
Primary intern brand: None prior to admission
Assessment:
Presentation with dizziness, left vision loss, transient dysarthria
Acute near occlusion of proximal right vertebral artery and acute complete occlusion of P3 of right posterior cerebral artery by head CT
Elevated CRP
Low B12
ECHO 09/27/2025: EF 55 to 60%, no significant valvular disease, bubble study negative
Plan:
- Patient presented with dizziness, left sided vision loss and transient dysarthria. Head CT with acute near occlusion of proximal right vertebral artery and acute complete occlusion of P3 of right posterior cerebral artery. Did not receive TNK
and was not felt to be candidate for IAT. Patient reports symptoms improving
- brain MRI pending
- On dual antiplatelet therapy and statin
- In sinus rhythm on review of telemetry without arrhythmias noted
- Echo with negative bubble study as above
- As etiology of CVA unclear, will make n.p.o. for EHSAN tomorrow. Procedure reviewed with patient and he is agreeable to proceed
- Will plan for 30-day color television console monitor upon discharge in addition
- Discussed with nursing
Data Reviewed
-
EKG: Tracing Personally Visualized and interpreted
CT Scan: Report Reviewed by me
Medical Tests (Nuc Med, Echo etc): Report Reviewed by me
Labs: Labs Reviewed by me
Old Records: Reviewed
[2025-09-27] MEDS: LIPITOR 80 MG PO (17:43)
--- NOTE | 2025-09-27 18:36 | PTCARENOTE ---
Assumed care of pt from previous nurse. Pt NIH 2, much emotional support and active listening provided. pt call fields is within reach, pt rings winsome. will cont to monitor.
[2025-09-27] MEDS: TYLENOL 650 MG PO (19:46)
[2025-09-28] VITALS (7 sets, daily range): BP systolic 142–173; BP diastolic 94–114
--- NOTE | 2025-09-28 08:55 | PN.CDI ---
CDI
- -
CDI:
Physician Documentation Request
Admit Date: 09/27/25 02:07
Dear Doctor Shelia,
Clinical Indicators:
Patient admitted with acute CVA.
09/27 PN, 'Uncontrolled Hypertension On presentation 202/128 -Allow for permissive hypertension'
09/26 Labetalol 10 mg IV x 1
BP trend on admission:
09/26/25
21:25 09/26/25
22:03 09/26/25
22:19
Blood pressure 202/128 188/126 188/119
09/26/25
22:27 09/26/25
22:38
Blood pressure 180/113 171/121
Please clarify which, if any of the following, is a more accurate diagnosis reflecting the type and acuity of the documented hypertension on admission:
Hypertensive Emergency - B/P is severely elevated (systolic > or = to 180 or diastolic > or = to 110) but can occur at lower levels especially in patients who did not previously have high B/P. There is usually associated organ damage. Symptoms may
include: CVA. Generally requires more aggressive treatment and a hospitalization.
Hypertensive Urgency - B/P is severely elevated (systolic > or = to 180 or diastolic > or = to 110) but there is no associated organ damage. Symptoms may include: headache, shortness of breath, nosebleeds, severe anxiety. Treatment usually consists
of addition to or adjusting of oral medications and does not generally necessitate hospitalization.
Other (please specify)
Unable to Determine
Use of terms such as suspected, likely, concern for, or probable (associated with a specific diagnosis that is being evaluated, monitored, or treated as if it exists) are acceptable and can be coded in the inpatient setting, when documented at the
time of discharge.
Thank you,
MAEGAN Rome RN
CDI Specialist
available via tiger text
Please use your independent medical judgment in providing your response.
[2025-09-28 09:12] LABS: Hematocrit 42.6 % (39.0-52.0); Hemoglobin 14.7 g/dL (13.0-18.0); Mean Corp Hgb Conc. 34.5 g/dL (33.0-37.0); Mean Corpuscular Volume 85.2 fL (80.0-94.0); Platelet Count 259 10^3/uL (130-400); Red Cell Dist. Width 12.8 % (11.5-14.5)
[2025-09-28] MEDS: PLAVIX 75 MG PO (09:21)
[2025-09-28] MEDS: LOW STRENGTH ASPIRIN 81 MG PO (09:21)
[2025-09-28] MEDS: VITAMIN B-12 1000 MCG PO (09:22)
--- NOTE | 2025-09-28 09:25 | W.PN.HOSP.TC ---
Today's Communication/Plan
-
EHSAN pending
Brain MRI pending
Start lisinopril
Assessment / Plan
Assessment / Plan
Patient is a 45 y/o male without significant past medical history who presents with dizziness associated with ringing in the ears and black spots in visual field. Patient reports over the past week he has had several transient episodes of black
spots in his visual field. 09/26 symptoms were much worse with dizziness, and a transient episodes of difficulty speaking prompting him to come to the emergency department for evaluation. In the ED CT head showed no intracranial abnormalities CTA
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 Patient was admitted for further stroke workup and neurology was consulted.
Echocardiogram with normal LVEF and negative bubble study, brain MRI pending echo pending lipid panel with LDL 169
#CVA
Acute Stroke secondary to occlusion of t of right posterior cerebral artery, right vertebral artery seen on CTA
CT head with no acute bleed, 3.9 cm arachnoid cyst causing mild mass effect on right cerebrallum and cerebellar vermis
S/p aspirin Plavix load in the ED
Permissive hypertension for 24 hours
-Consult Neurology
-Consult cardiology, appreciate recs
Negative bubble study, ordered EHSAN pending
If negative EHSAN considering 2 to 4-week monitor to evaluate for arrhythmia
- Brain MRI pending
-Echocardiogram with bubble LVEF 55-60% negative bubble study
-Check HgbA1c
- Lipid Panel total cholesterol 240, triglycerides 140, LDL 169, VLDL 28, HDL 43
-Consult PT/OT, no dysphagia or dysarthria
- Continue aspirin 81mg Daily and clopidogrel 75mg Daily for 21 days and then aspirin monotherapy indefinitely
- atorvastatin 80 mg
#Uncontrolled Hypertension
Secondary to CVA
On presentation 202/128
-Allow for permissive hypertension (220/120 or MAP 140)
-Start lisinopril 5 mg daily
-Add hydralazine PRN
DVT proph: SCDs
Code Status: Full Code
Anticipated Discharge: Within 24 hours
Subjective/Interval History
-
Patient was seen at bedside, reports feeling better than yesterday, still has visual field deficits and mild headache yesterday that was alleviated with Tylenol, otherwise improvement in balance no shortness of breath no chest pain no nausea
vomiting no abdominal pain no fevers chills. Date of Service: September 28, 2025
Objective Data
-
Labs:
Laboratory Results
09/28/25
08:12
WBC 7.1
Hgb 14.7
Hct 42.6
Plt Count 259
Sodium Pending
Potassium Pending
Chloride Pending
Carbon Dioxide Pending
BUN Pending
Creatinine Pending
Glucose Pending
Calcium Pending
Vital Signs:
Vital Signs
Temp Pulse Resp BP Pulse Ox
99.4 F 77 17 151/100 98
09/28/25 07:44 09/28/25 07:44 09/28/25 07:44 09/28/25 07:44 09/28/25 07:44
I&O
09/27/25 09/28/25 09/29/25
06:59 06:59 06:59
Intake Total 1080 / 1080
Balance 1080 / 1080
Review of Systems
-
History Source: Patient
Constitutional: Reports No Symptoms; Denies Fever or Chills
EENT: Denies Sore Throat or Runny Nose
Respiratory: Denies Cough or Trouble Breathing
Cardiac: Denies Chest Pain or Palpitations
Abdomen/GI: Denies Abdominal Pain, Nausea, Vomiting, Diarrhea or Constipated
Genitourinary: Denies Dysuria
Neuro: Reports Headache; Denies Weakness, Numbness or Ataxia
Physical Exam
-
General: Well Developed, Well Nourished, No Apparent Distress and Comfortable; Negative Fever or Chills
HEENT: Normocephalic and Atraumatic
Respiratory: Clear to Auscultation and Non Labored Respirations; Negative Wheezes or Crackles
Cardiac: Regular Rhythm and S1/S2; Negative Murmur
GI: Soft, Nontender, Nondistended and Normal Bowel Sounds
Musculoskeletal: No Clubbing and No Edema
Skin: Warm, Dry and Rash
Neuro: Awake, Alert, Oriented, No Motor Deficits, Nonfocal/Grossly Intact and Central Nerve's Intact; Negative Tremors
[2025-09-28 09:36] LABS: Blood Urea Nitrogen 9 mg/dl (9-20); Calcium 9.7 mg/dl (8.4-10.2); Carbon Dioxide 26 mmol/L (22-30); Chloride 104 mmol/L (98-107); Estimated Creatinine Clearance > 125 ml/min; Glucose 98 mg/dl (70-99); Potassium 4.1 mmol/L (3.5-5.1); Sodium 136 mmol/L (135-145); eGFR > 60.00
--- NOTE | 2025-09-28 15:13 | W.PN.CARDCBS ---
Today's Communication / Plan
-
No clear cardioembolic source of stroke
We will arrange for outpatient quality assurance monitor final to be placed either this afternoon or can be done as an outpatient
Impression / Plan
-
Primary keg filler: None prior to admission
Assessment:
Presentation with dizziness, left vision loss, transient dysarthria
Acute near occlusion of proximal right vertebral artery and acute complete occlusion of P3 of right posterior cerebral artery by head CT
Elevated CRP
Low B12
ECHO 09/27/2025: EF 55 to 60%, no significant valvular disease, bubble study negative
Plan:
- Patient presented with dizziness, left sided vision loss and transient dysarthria. Head CT with acute near occlusion of proximal right vertebral artery and acute complete occlusion of P3 of right posterior cerebral artery. Did not receive TNK
and was not felt to be candidate for IAT.
- Brain MRI pending
- In sinus rhythm on review of telemetry without arrhythmias noted
- Will plan for 30-day quality assurance monitor final upon discharge in addition - can be placed this afternoon or he can return as outpatient if needed
- Echo with negative bubble study as above
- EHSAN images reviewed, no cardioembolic source of stroke identified
- Agree with ASA/plavix and high intensity statin for goal LDL <70
- Reviewed importance of BP control and he plans to monitor at home following discharge
Outpatient follow-up to be arranged
Progress Note - Instructor Knitting
Subjective
Date of Service: September 28, 2025
NAOE. No cardiac complaints. Tele with NSR. Underwent EHSAN earlier today.
Objective
Labs:
09/28/25 08:12
09/28/25 08:12
Labs
Hgb 14.7 g/dL (13.0-18.0) 09/28/25 08:12
Hct 42.6 % (39.0-52.0) 09/28/25 08:12
Plt Count 259 10^3/uL (130-400) 09/28/25 08:12
PT 12.2 Sec (11.4-14.6) 09/26/25 21:37
INR 0.86 09/26/25 21:37
APTT 28.6 Sec (23.4-35.0) 09/26/25 21:37
Sodium 136 mmol/L (135-145) 09/28/25 08:12
Potassium 4.1 mmol/L (3.5-5.1) 09/28/25 08:12
BUN 9 mg/dl (9-20) 09/28/25 08:12
Creatinine 0.7 mg/dL (0.7-1.3) 09/28/25 08:12
Glucose 98 mg/dl (70-99) 09/28/25 08:12
Troponins
09/26/25
21:37
Troponin I < 0.012
Vital Signs and I&O:
Vital Signs
Temp Pulse Resp BP Pulse Ox
98.8 F 74 18 173/112 96
09/28/25 15:11 09/28/25 15:11 09/28/25 15:11 09/28/25 15:11 09/28/25 15:11
Vital Signs
Temp Pulse Resp BP Pulse Ox
98.8 F 74 18 173/112 96
09/28/25 15:11 09/28/25 15:11 09/28/25 15:11 09/28/25 15:11 09/28/25 15:11
Intake & Output
09/26/25 09/27/25 09/28/25 09/29/25
06:59 06:59 06:59 06:59
Intake Total 1080 / 1080
Balance 1080 / 1080
Physical Exam
Physical Exam
Gen: NAD, AAOx3
HEENT: NC/AT, sclera anicteric
Neck: No JVD
CV: RRR, NL s1/s2, no M/R/G
Lungs: CTAB
Abd: S/ND
Ext: No LE edema
Skin: Warm, dry
Neuro: Non-focal
[2025-09-28] MEDS: ATIVAN 1 MG IV (15:18)
[2025-09-28] MEDS: ZESTRIL 5 MG PO (15:21)
[2025-09-28] MEDS: NSS (PRESERVATIVE FREE) 0.5 ML IV (15:21)
--- NOTE | 2025-09-28 16:49 | CM ---
sales and production manager reviewed patient's chart and met with patient and patient lives with spouse in a 2 story home, patient is independent with adl's and ambulation, no dme, patient drives and works. Home when stable with outpatient PT.
PCP: Prudencio Carrasquillo
Pharmacy: [facility] in [place]
--- NOTE | 2025-09-28 17:00 | PTCARENOTE ---
Patient was found in room lying in bed, reported patient lost consciousness but had spontaneously recovered. Patient's telemety showed an associated pause of the heart. Provider was notified immediately and an EKG was preformed and vital signs
recorded. Dr. Rodriguez initiated a transfer to the IVU
--- NOTE | 2025-09-28 17:03 | W.PN.NEURO.1 ---
Today's Communication / Plan
-
Continue newly initiated aspirin and clopidogrel; continue aspirin lifelong and discontinue clopidogrel after 21 doses
Outpatient heme-onc evaluation for hypercoagulable state
Goal of normotension
Atorvastatin 80 mg nightly is to be continued
Continue cyanocobalamin
Rehabilitation evaluations and treatment
Neuro Assessment/Plan
Assessment
Abrupt onset of visual loss in the left suggesting a quadrantanopia which is most likely secondary to an acute ischemic stroke. Differential diagnosis includes reversible cerebrovascular syndrome.
The possibility of a hypercoagulable state as well as thromboembolic source are not illuminated at this time.
EHSAN negative
Plan
Continue newly initiated aspirin and clopidogrel; continue aspirin lifelong and discontinue clopidogrel after 21 doses
Outpatient heme-onc evaluation for hypercoagulable state
Goal of normotension
Atorvastatin 80 mg nightly is to be continued
Continue cyanocobalamin
Rehabilitation evaluations and treatment
We will follow as outpatient
Subjective/Objective
Subjective Data
Date of Service: September 28, 2025
Objective Data
Vital Signs
Temp Pulse Resp BP Pulse Ox
37.1 C 74 18 173/112 96
09/28/25 15:11 09/28/25 15:11 09/28/25 15:11 09/28/25 15:11 09/28/25 15:11
Lab Results
09/28/25 08:12
09/28/25 08:12
PT 12.2 Sec (11.4-14.6) 09/26/25 21:37
INR 0.86 09/26/25 21:37
APTT 28.6 Sec (23.4-35.0) 09/26/25 21:37
Sodium 136 mmol/L (135-145) 09/28/25 08:12
Potassium 4.1 mmol/L (3.5-5.1) 09/28/25 08:12
BUN 9 mg/dl (9-20) 09/28/25 08:12
Glucose 98 mg/dl (70-99) 09/28/25 08:12
Calcium 9.7 mg/dl (8.4-10.2) 09/28/25 08:12
LDL Cholesterol, Calc 169 mg/dl 09/27/25 08:59
Vitamin B12 200 pg/ml (239-931) L 09/27/25 08:59
Patient Allergies
No Known Allergies Allergy (Verified 09/26/25 23:02)
--- NOTE | 2025-09-28 17:14 | W.PN.UPDATE ---
Update Note
Progress Note Update
Patient experienced a syncopal episode while laying in bed eating. Telemetry at that time showed asystole with 1 QRS complex in approximately 10 seconds. Patient returned to normal sinus rhythm spontaneously and mental status returned to baseline.
Cardiology aware. Pacer pads will be placed in atropine ordered to bedside. He is being transferred to IVU. Will check labs including troponin and electrolytes. Check EKG.
--- NOTE | 2025-09-28 18:17 | W.PN.UPDATE ---
Update Note
Progress Note Update
Evaluated patient at bedside following syncopal episode
Tells me he was laying in bed eating at the time
Developed prodromal symptoms of lightheadedness and dizziness prior to
Telemetry reviewed showing sinus slowing and then approximately 10-second pause followed by quick heart rate recovery
Based on description and telemetry review suspect this is vasovagal in etiology
Also had an additional episode of lightheadedness and dizziness but no kevan syncope while in the elevator being transported to the IVU
Telemetry showed sinus slowing and bradycardia with heart rate in the 20s which then quickly recovered
Recommend:
Keep on telemetry in IVU
ZOLL pads in place
Atropine at bedside
Already planned for outpatient rail layer at time of discharge
Discussed with nursing and family at bedside
CC: 31 min
--- NOTE | 2025-09-28 18:29 | PTCARENOTE ---
Rec'd report from 4W RN Jacques; This RN, Walker & another IVU RN transported pt in bed w/pacer pads & transport monitor on. As we were about to enter the elevator on the 4th floor the pt reported 'feeling off'. He described feeling like he had
earlier before his 10.92 second pause. Pt alarmed bradycardic in the low 30's & then HR recovered to the 70's quickly. Pt settled in the rm. VSS w/HR 77, BP 151/96 & pt now SR on telemetry monitoring. Labwork drawn & sent as ordered. Dr Riggs in
to see pt. Call fields within reach & plan of care ongoing.
[2025-09-28] MEDS: ZOFRAN 4 MG PO (18:48)
[2025-09-28 19:00] LABS: Blood Urea Nitrogen 9 mg/dl (9-20); Calcium 9.4 mg/dl (8.4-10.2); Carbon Dioxide 26 mmol/L (22-30); Chloride 104 mmol/L (98-107); Estimated Creatinine Clearance > 125 ml/min; Glucose 112 mg/dl (70-99); Potassium 3.8 mmol/L (3.5-5.1); Sodium 138 mmol/L (135-145); Troponin I < 0.012 ng/ml; eGFR > 60.00
[2025-09-28] MEDS: LIPITOR 80 MG PO (20:06)
[2025-09-28] MEDS: TYLENOL 650 MG PO (22:53)
[2025-09-29] VITALS (7 sets, daily range): BP systolic 149–165; BP diastolic 96–110
--- NOTE | 2025-09-29 00:31 | PTCARENOTE ---
Received patient at change of shift. SR on the monitor, HR in the 70s. NIHSS of 2, completed with dayshift nurse. Pads in place. No complaints from pt at this time, call fields within reach.
2250: Pt complained of 6/10 R sided headache, PRN Tylenol administered.
0: Nurse in room. Patient stated 'something feels wrong' HR went into the 40s before having an 11.5 second pause. Patient unresponsive, rigid, eye rolled back in his head. Patient back in SR with no intervention. BP 151/94. 95% on room air.
Patient reports feeling hot and states his 'head was spinning' before he 'passed out.' 2L nasal cannula. HEAD CAGER and cards made aware. NPO. Pt now resting in bed. Pads still in place.
--- NOTE | 2025-09-29 01:14 | W.PN.UPDATE ---
Update Note
Progress Note Update
Patient c/o BURCH and was given tylenol at 2200. Later he asked to go to the bathroom but was reminded he was on strict bedrest.At 2338 he leaned up in be, HR dropped to the 40s and then he laid back and said 'something doesn't feel right'. He layed
back on the pillow and nursing described his eyes rolled back. An 11.63 second pause was noted on telemetry. He retrurned to baseline with HR 66 and BP 151/94. Cardiology service aware.
[2025-09-29 04:15] LABS: Hematocrit 41.7 % (39.0-52.0); Hemoglobin 14.7 g/dL (13.0-18.0); Mean Corp Hgb Conc. 35.3 g/dL (33.0-37.0); Mean Corpuscular Volume 82.9 fL (80.0-94.0); Platelet Count 268 10^3/uL (130-400); Red Cell Dist. Width 12.3 % (11.5-14.5)
[2025-09-29 04:39] LABS: Blood Urea Nitrogen 9 mg/dl (9-20); Calcium 9.8 mg/dl (8.4-10.2); Carbon Dioxide 25 mmol/L (22-30); Chloride 104 mmol/L (98-107); Estimated Creatinine Clearance > 125 ml/min; Glucose 115 mg/dl (70-99); Potassium 4.2 mmol/L (3.5-5.1); Sodium 137 mmol/L (135-145); eGFR > 60.00
--- NOTE | 2025-09-29 07:49 | W.PN.CARDCBS ---
Today's Communication / Plan
-
Recurrent sinus pauses unclear etiology, potentially vagal however with degree low threshold for PPM unless there is a neurologic component to this.
Discussion with neurology are ongoing.
Brain MRI noted and head and neck CTA reviewed with neurology.
Neuro to repeat head and neck CTA to eval for response to DAPT and evaluation of his vertebral artery blood flow. Per neurology, theoretically it is possible that if he had transient hypotension to his brain stem it could lead to episodes of
bradycardia. Will continue to avoid hypotension as well.
Continue telemetry.
Cont Zoll pads and atropine at bedside.
Echo with negative bubble study as above
EHSAN images reviewed, no cardioembolic source of stroke identified
Agree with ASA/plavix and high intensity statin for goal LDL <70
Discussed with nursing, neurology and primary service and family at bedside including his .
Impression / Plan
-
.
Primary email engineer: None prior to admission
Impression:
Presentation with dizziness, left vision loss, transient dysarthria
Acute near occlusion of proximal right vertebral artery and acute complete occlusion of P3 of right posterior cerebral artery by head CT
Syncope while eating 09/28 with pause, 10 sec 09/28
Recurrent pause 11 sec 09/29
Elevated CRP
Low B12
ECHO 09/27/2025: EF 55 to 60%, no significant valvular disease, bubble study negative
EHSAN 09/28/2025: No cardiac source of embolus identified
Brain MRI 09/28/2025 Focal area of acute to subacute infarction involving the posterior and medial right occipital lobe, also extending to involve the posteromedial and superior right temporal lobe.
There is abnormal signal involving the choroid plexus within the atria of the right lateral ventricle, which is likely acute to subacute infarction of the choroid plexus as well.
There is a small component of associated hemorrhagic transformation within this region of infarction. Punctate focus of acute to subacute infarct involving the inferior aspect of the right cerebellar hemisphere.
Head and Neck CTA 09/26/2025:
NECK CTA:
1. ACUTE NEAR OCCLUSION of the PROXIMAL RIGHT VERTEBRAL ARTERY at the origin with a 5 mm segment of severe luminal narrowing caused by thrombosis, embolus, or focal dissection.
2. 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
3. No CTA evidence for stenosis, occlusion, or dissection in either internal carotid artery.
HEAD CTA:
1. ACUTE COMPLETE OCCLUSION of the P3 (quadrigeminal segment) of the RIGHT POSTERIOR CEREBRAL ARTERY accounting for the ischemic changes in the right occipital lobe seen on the CT brain perfusion examination.
2. Moderate hypoplasia of the P1 segment of the left posterior cerebral artery.
3. 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
4. 3.0 cm arachnoid cyst in the right side of the posterior fossa.
Plan:
-Patient presented with dizziness, left sided vision loss and transient dysarthria. Head CT with acute near occlusion of proximal right vertebral artery and acute complete occlusion of P3 of right posterior cerebral artery. Did not receive TNK and
was not felt to be candidate for IAT.
Recurrent sinus pauses unclear etiology, potentially vagal however with degree low threshold for PPM unless there is a neurologic component to this.
Discussion with neurology are ongoing.
Brain MRI noted and head and neck CTA reviewed with neurology.
Neuro to repeat head and neck CTA to eval for response to DAPT and evaluation of his vertebral artery blood flow. Per neurology, theoretically it is possible that if he had transient hypotension to his brain stem it could lead to episodes of
bradycardia. Will continue to avoid hypotension as well.
Pt recommended outpt hypercoagulable work up per neuro
Continue telemetry.
Cont Zoll pads and atropine at bedside.
Echo with negative bubble study as above
EHSAN images reviewed, no cardioembolic source of stroke identified
Agree with ASA/plavix and high intensity statin for goal LDL <70
Discussed with nursing, neurology and primary service and family at bedside including his .
Progress Note - Pulmonology Physician
Subjective
Date of Service: September 29, 2025
Pt seen and examined. No complaints. No chest pain or shortness of breath.
Objective
Labs:
09/29/25 03:59
09/29/25 03:59
Labs
Hgb 14.7 g/dL (13.0-18.0) 09/29/25 03:59
Hct 41.7 % (39.0-52.0) 09/29/25 03:59
Plt Count 268 10^3/uL (130-400) 09/29/25 03:59
PT 12.2 Sec (11.4-14.6) 09/26/25 21:37
INR 0.86 09/26/25 21:37
APTT 28.6 Sec (23.4-35.0) 09/26/25 21:37
Sodium 137 mmol/L (135-145) 09/29/25 03:59
Potassium 4.2 mmol/L (3.5-5.1) 09/29/25 03:59
BUN 9 mg/dl (9-20) 09/29/25 03:59
Creatinine 0.7 mg/dL (0.7-1.3) 09/29/25 03:59
Glucose 115 mg/dl (70-99) H 09/29/25 03:59
Troponins
09/26/25 09/28/25
21:37 18:15
Troponin I < 0.012 < 0.012
Vital Signs and I&O:
Vital Signs
Temp Pulse Resp BP Pulse Ox
98.1 F 67 18 157/103 100
09/29/25 03:30 09/29/25 04:00 09/29/25 03:30 09/29/25 03:34 09/29/25 03:34
Vital Signs
Temp Pulse Resp BP Pulse Ox
98.1 F 67 18 157/103 100
09/29/25 03:30 09/29/25 04:00 09/29/25 03:30 09/29/25 03:34 09/29/25 03:34
Intake & Output
09/27/25 09/28/25 09/29/25 09/30/25
06:59 06:59 06:59 06:59
Intake Total 1080 / 1080 0 / 0
Output Total 1075 / 1075
Balance 1080 / 1080 -1075 / -1075
Physical Exam
Physical Exam
General: No acute distress, AAOX3
Neck: Negative JVD
Heart: Regular, Negative S3 positive S1/S2, Negative S4, No murmur
Lungs: CTA b/l, negative wheezes/rales/rhonchi
Abd: Positive BS, NT/ND, neg rebound/rigidity/guarding
Ext: Negative cyanosis/clubbing/edema
Neuro: nonfocal
[2025-09-29 08:04] LABS: ANA, IgG Reflex to HEp-2 None Detected (None Detected)
--- NOTE | 2025-09-29 09:22 | PTCARENOTE ---
Received patient this morning resting in bed, family at the bedside with questions regarding plan of care. Patient seen by Dr. Peñaloza, EKG done as ordered, remains in bed and ok for him to eat breakfast, atropine at the bedside. No further episodes
of pauses since last night, instructed to maintain bedrest for now, call fields in reach.
[2025-09-29] MEDS: PLAVIX 75 MG PO (09:26)
[2025-09-29] MEDS: FLUSH (NSS) 1 FLUSH IV (09:26)
[2025-09-29] MEDS: LOW STRENGTH ASPIRIN 81 MG PO (09:26)
--- NOTE | 2025-09-29 11:05 | W.PN.UPDATE ---
Update Note
Progress Note Update
I received a message from Bruce Bass on TT regarding stroke etiology for this patient. The question was could the vertebral occlusions seen on CTA could be an etiology of stroke. I reviewed his MRI and CTA head and neck. dissections at the
vertebral origin would be an unusual location for a dissection, but a vertebral dissection can cause stroke. 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 I still agree with DAPT for 21 days followed by
aspirin 81mg daily for secondary stroke prevention. He will need neurology follow up and other follow-up as detailed in Dr. Caldwell's note.
--- NOTE | 2025-09-29 11:36 | W.PN.HOSP.TC ---
Today's Communication/Plan
-
Repeat CTA, CT head
Continue DAPT
Assessment / Plan
Assessment / Plan
Patient is a 45 y/o male without significant past medical history who presents with dizziness associated with ringing in the ears and black spots in visual field. Patient reports over the past week he has had several transient episodes of black
spots in his visual field. 09/26 symptoms were much worse with dizziness, and a transient episodes of difficulty speaking prompting him to come to the emergency department for evaluation. In the ED CT head showed no intracranial abnormalities CTA
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 Patient was admitted for further stroke workup and neurology was consulted.
Echocardiogram with normal LVEF and negative bubble study, brain MRI pending echo pending lipid panel with LDL 169
#CVA
Acute Stroke secondary to occlusion of t of right posterior cerebral artery, right vertebral artery seen on CTA
CT head with no acute bleed, 3.9 cm arachnoid cyst causing mild mass effect on right cerebrallum and cerebellar vermis
S/p aspirin Plavix load in the ED
Permissive hypertension for 24 hours
-Consult Neurology
-Consult cardiology, appreciate recs
Negative bubble study, ordered EHSAN pending
If negative EHSAN considering 2 to 4-week monitor to evaluate for arrhythmia
- Brain MRI Focal area of acute infarction posterior and medial right occipital lobe, also extending to the posteromedial and superior right temporal lobe. right lateral ventricle, which is likely acute to subacute infarction of the choroid
plexus, mall component of associated hemorrhagic transformation within this region of infarction, acute infarct involving the inferior aspect of the right cerebellar hemisphere.
-Echocardiogram with bubble LVEF 55-60% negative bubble study
-EHSAN with no PFO
- HgbA1c 5.2
- Lipid Panel total cholesterol 240, triglycerides 140, LDL 169, VLDL 28, HDL 43
-Consult PT/OT, no dysphagia or dysarthria
- Continue aspirin 81mg Daily and clopidogrel 75mg Daily for 21 days and then aspirin monotherapy indefinitely
- atorvastatin 80 mg
- Repeat CT head, CTA to assess for vertebral artery dissection
#Uncontrolled Hypertension
Secondary to CVA
On presentation
-lisinopril 5 mg daily
-hydralazine PRN
DVT proph: SCDs
Code Status: Full Code
Anticipated Discharge: 24 - 48 hours
Subjective/Interval History
-
Patient was seen at bedside with cousin present. Patient had another episode of prolonged sinus pauses overnight with syncope that required no intervention. This morning patient states she is doing well with mild headache and no worsening motor or
sensory symptoms. Discussed MRI results with patient and family and discussed possible causes for sinus pauses and syncope. Reported no fevers chills shortness of breath chest pain or palpitations. Date of Service: September 29, 2025
Objective Data
-
Labs:
Laboratory Results
09/29/25
03:59
WBC 7.2
Hgb 14.7
Hct 41.7
Plt Count 268
Sodium 137
Potassium 4.2
Chloride 104
Carbon Dioxide 25
BUN 9
Creatinine 0.7
Glucose 115 H
Calcium 9.8
Vital Signs:
Vital Signs
Temp Pulse Resp BP Pulse Ox
98.5 F 80 16 160/105 98
09/29/25 08:35 09/29/25 08:35 09/29/25 08:35 09/29/25 08:34 09/29/25 08:35
I&O
09/28/25 09/29/25 09/30/25
06:59 06:59 06:59
Intake Total 1080 / 1080 0 / 0 480 / 480
Output Total 1075 / 1075 350 / 350
Balance 1080 / 1080 -1075 / -1075 130 / 130
Review of Systems
-
History Source: Patient and Family
Constitutional: Denies Fever or Chills
EENT: Reports No Symptoms Reported; Denies Runny Nose
Respiratory: Denies Cough or Trouble Breathing
Cardiac: Reports Syncope; Denies Chest Pain or Palpitations
Abdomen/GI: Denies Abdominal Pain, Nausea, Vomiting, Diarrhea or Constipated
Genitourinary: Denies Dysuria
Neuro: Reports Headache; Denies Dizzy, Weakness, Numbness or Ataxia
Physical Exam
-
General: Well Developed, Well Nourished, No Apparent Distress and Comfortable; Negative Fever
HEENT: Normocephalic and Atraumatic
Respiratory: Clear to Auscultation and Non Labored Respirations; Negative Wheezes or Crackles
Cardiac: Regular Rhythm and S1/S2; Negative Murmur
GI: Soft, Nontender, Nondistended and Normal Bowel Sounds
Musculoskeletal: No Clubbing and No Edema
Skin: Warm and Dry
Neuro: Awake, Alert, Oriented, AO x 3, No Motor Deficits, Nonfocal/Grossly Intact, Central Nerve's Intact, No Sensory Deficits and Other (Left upper field visual field deficits); Negative Slurred Speech
[2025-09-29] MEDS: VITAMIN B-12 1000 MCG PO (11:51)
--- NOTE | 2025-09-29 13:25 | W.PN.NEURO.1 ---
Today's Communication / Plan
-
plan communicated via TT to primary team and cardiology
Neuro Assessment/Plan
Assessment
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
syncope
Plan
Continue newly initiated aspirin and clopidogrel; continue aspirin lifelong and discontinue clopidogrel after 21 doses
Outpatient heme-onc evaluation for hypercoagulable state
Goal of normotension
Atorvastatin 80 mg nightly is to be continued
Continue cyanocobalamin
Rehabilitation evaluations and treatment
Repeat CT head to eval increased ICP causing Sandie syndrome (unlikely given he's back a baseline after episodes) and CTA to eval for stability of dissections
Case discussed with Stroke Fellow at [facility] via transfer line. If CTA stable can stay here. If CTA shows worsening consider transfer
t/c AC with eliquis pending CTA head and neck
consider transfer for q 2 hour neurochecks overnight given autonomic instability
Subjective/Objective
Subjective Data
Date of Service: September 29, 2025
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 He's had 3 episodes of sinus bradycardia pauses associated with syncope. Cardiology following. Episodes not associated with changing position. 1 happened in a stretcher coming back from MRI. another one happened when he was
thinking about sitting up from supine position but didn't acutally move and the episode occurred. He returns to baseline at this time. He continues to have L HH but no other new complaints. He asked if prism glasses would be helpful for this, and I
told him that they most likely wouldn't be helpful for this.
Objective Data
Vital Signs
Temp Pulse Resp BP Pulse Ox
37.2 C 66 18 149/105 96
09/29/25 12:13 09/29/25 12:45 09/29/25 12:13 09/29/25 12:08 09/29/25 12:13
Lab Results
09/29/25 03:59
09/29/25 03:59
PT 12.2 Sec (11.4-14.6) 09/26/25 21:37
INR 0.86 09/26/25 21:37
APTT 28.6 Sec (23.4-35.0) 09/26/25 21:37
Sodium 137 mmol/L (135-145) 09/29/25 03:59
Potassium 4.2 mmol/L (3.5-5.1) 09/29/25 03:59
BUN 9 mg/dl (9-20) 09/29/25 03:59
Glucose 115 mg/dl (70-99) H 09/29/25 03:59
Calcium 9.8 mg/dl (8.4-10.2) 09/29/25 03:59
LDL Cholesterol, Calc 169 mg/dl 09/27/25 08:59
Vitamin B12 200 pg/ml (239-931) L 09/27/25 08:59
Patient Allergies
No Known Allergies Allergy (Verified 09/26/25 23:02)
Review of Systems
-
All other systems: Reviewed and negative
Physical Exam
-
General: Well Developed, Well Nourished and No Apparent Distress
HEENT: Normocephalic and Atraumatic
Skin: Unremarkable
Extremities: No Clubbing
Psych: Unremarkable
Extended Neurological Exam
Mood & Affect: Mood Unremarkable and Affect Unremarkable
Attention Span & Concentration: Awake, Alert and Interactive
Memory: Unremarkable
Tremor: Hand Tremor Absent
Involuntary Movement: None
Speech: Quality Unremarkable, Quantity Unremarkable and Rate of Production Unremarkable
Cranial Nerve II: Left Eye: Pupillary Reactivity Unremarkable and Other (L HH)
Cranial Nerve II: Right Eye: Pupillary Reactivity Unremarkable and Other (L HH)
Cranial Nerves III, IV, : Extraocular Movement: Extraocular Movement Full in all Directions
Muscle Strength, Overall: Full Throughout
Muscle Bulk & Tone: Bulk Unremarkable and Tone Unremarkable
Data Reviewed
-
CT-A: Image Reviewed (Occlusion of R vert at origin and hypoplastic L vert. distal R VINEYARD SUPERVISOR occlusion.)
MRI Head: Image Reviewed (R VINEYARD SUPERVISOR acute stroke)
--- NOTE | 2025-09-29 15:01 | PTCARENOTE ---
Patient seen by neurology and then taken in his bed for CT angio head/neck. TT from hospitalist on request to transfer the patient to IMU for neuro checks q2H. Neurologically, no changes noted. Still has blurred vision L eye but mild left facial
droop appears resolved. Maintaining bedrest, no dizziness noted, SR in the 70's, no pauses noted, call fields in reach. The patient and updated on pending transfer to IMU when bed is available, nursing car repair supervisor is aware.
--- NOTE | 2025-09-29 16:52 | PTCARENOTE ---
Patient and requesting results of CTA, tt to neurologist. Dr. Garcia to come speak with them.
[2025-09-29] MEDS: LIPITOR 80 MG PO (17:27)
--- NOTE | 2025-09-29 18:14 | PTCARENOTE ---
Patient transferred to IMU room 3341 with his belongings, accompanied him, report given to Mindy.
--- NOTE | 2025-09-29 18:30 | PTCARENOTE ---
Received patient from IVU in bed. Patient AAOX3. Patient transferred to IMU for closer neuro monitoring. NIH score of 1. SR on monitor with HR 70-80'S. Oriented patient to room. at bedside.
[2025-09-30] VITALS (14 sets, daily range): BP systolic 136–166; BP diastolic 73–108
--- NOTE | 2025-09-30 01:50 | PTCARENOTE ---
assumed care of patient. pt is oriented x2-3, forgetful and confused at times. slow speech noted. able to make needs known. VSS. 94% 2LNC. bed alarm on. able to take pills whole with applesauce without issues. no complaints of pain. care ongoing.
--- NOTE | 2025-09-30 01:55 | PTCARENOTE ---
assumed care of patient. pt is AAOx3, able to make needs known. VSS. NIH-1, pt reports ongoing left eye field cut/blurriness. using urinal at bedside. neurological checks completed q2 per order, WNL. care ongoing.
--- NOTE | 2025-09-30 02:36 | PTCARENOTE ---
pt was able to get OOB to use BSC to have a large BM. pt reported no dizziness or pain during ambulation. pt placed back to bed without issues. care ongoing.
[2025-09-30 06:07] LABS: Hematocrit 41.6 % (39.0-52.0); Hemoglobin 14.9 g/dL (13.0-18.0); Mean Corp Hgb Conc. 35.8 g/dL (33.0-37.0); Mean Corpuscular Volume 82.4 fL (80.0-94.0); Platelet Count 271 10^3/uL (130-400); Red Cell Dist. Width 12.0 % (11.5-14.5)
[2025-09-30 06:24] LABS: Blood Urea Nitrogen 11 mg/dl (9-20); Calcium 9.7 mg/dl (8.4-10.2); Carbon Dioxide 25 mmol/L (22-30); Chloride 103 mmol/L (98-107); Estimated Creatinine Clearance > 125 ml/min; Glucose 106 mg/dl (70-99); Potassium 4.0 mmol/L (3.5-5.1); Sodium 138 mmol/L (135-145); eGFR > 60.00
--- NOTE | 2025-09-30 08:35 | W.PN.CARDCBS ---
Today's Communication / Plan
-
Recurrent sinus pauses unclear etiology, potentially vagal however with degree low threshold for PPM.
Reviewed with EP. Will make pt NPO after midnight for likely pacer Nov 10
Impression / Plan
-
.
Primary hospice care transitions coordinator: None prior to admission
Impression:
Presentation with dizziness, left vision loss, transient dysarthria
Acute near occlusion of proximal right vertebral artery and acute complete occlusion of P3 of right posterior cerebral artery by head CT
Syncope while eating 09/28 with pause, 10 sec 09/28
Recurrent pause 11 sec 09/29
Elevated CRP
Low B12
ECHO 09/27/2025: EF 55 to 60%, no significant valvular disease, bubble study negative
EHSAN 09/28/2025: No cardiac source of embolus identified
Brain MRI 09/28/2025 Focal area of acute to subacute infarction involving the posterior and medial right occipital lobe, also extending to involve the posteromedial and superior right temporal lobe.
There is abnormal signal involving the choroid plexus within the atria of the right lateral ventricle, which is likely acute to subacute infarction of the choroid plexus as well.
There is a small component of associated hemorrhagic transformation within this region of infarction. Punctate focus of acute to subacute infarct involving the inferior aspect of the right cerebellar hemisphere.
Head and Neck CTA 09/26/2025:
NECK CTA:
1. ACUTE NEAR OCCLUSION of the PROXIMAL RIGHT VERTEBRAL ARTERY at the origin with a 5 mm segment of severe luminal narrowing caused by thrombosis, embolus, or focal dissection.
2. 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
3. No CTA evidence for stenosis, occlusion, or dissection in either internal carotid artery.
HEAD CTA:
1. ACUTE COMPLETE OCCLUSION of the P3 (quadrigeminal segment) of the RIGHT POSTERIOR CEREBRAL ARTERY accounting for the ischemic changes in the right occipital lobe seen on the CT brain perfusion examination.
2. Moderate hypoplasia of the P1 segment of the left posterior cerebral artery.
3. 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
4. 3.0 cm arachnoid cyst in the right side of the posterior fossa.
Plan:
-Patient presented with dizziness, left sided vision loss and transient dysarthria. Head CT with acute near occlusion of proximal right vertebral artery and acute complete occlusion of P3 of right posterior cerebral artery. Did not receive TNK and
was not felt to be candidate for IAT.
Recurrent sinus pauses unclear etiology, potentially vagal however with degree low threshold for PPM.
Reviewed with EP. Will make pt NPO after midnight for likely pacer Oct 01
Neurology repeated CTA which appears to be stable overall compared to prior. Pt was not transferred to tertiary care center.
He was transferred to IMU for closer clinical observation including neurochecks
Brain MRI noted and head and neck CTA reviewed with neurology.
Consider hematology eval for hypercoagulable work up, neuro originally suggested outpt
Continue telemetry.
Cont Zoll pads and atropine at bedside.
Echo with negative bubble study as above
EHSAN images reviewed, no cardioembolic source of stroke identified
Agree with ASA/plavix and high intensity statin for goal LDL <70
Discussed with nursing, and family
Progress Note - Customer Agent
Subjective
Date of Service: September 30, 2025
Pt seen and examined. No complaints. No chest pain or shortness of breath.
Objective
Labs:
09/30/25 05:52
09/30/25 05:52
Labs
Hgb 14.9 g/dL (13.0-18.0) 09/30/25 05:52
Hct 41.6 % (39.0-52.0) 09/30/25 05:52
Plt Count 271 10^3/uL (130-400) 09/30/25 05:52
PT 12.2 Sec (11.4-14.6) 09/26/25 21:37
INR 0.86 09/26/25 21:37
APTT 28.6 Sec (23.4-35.0) 09/26/25 21:37
Sodium 138 mmol/L (135-145) 09/30/25 05:52
Potassium 4.0 mmol/L (3.5-5.1) 09/30/25 05:52
BUN 11 mg/dl (9-20) 09/30/25 05:52
Creatinine 0.7 mg/dL (0.7-1.3) 09/30/25 05:52
Glucose 106 mg/dl (70-99) H 09/30/25 05:52
Troponins
09/28/25
18:15
Troponin I < 0.012
Vital Signs and I&O:
Vital Signs
Temp Pulse Resp BP Pulse Ox
98.1 F 74 13 148/94 96
09/30/25 07:00 09/30/25 08:00 09/30/25 08:00 09/30/25 08:00 09/29/25 20:00
Vital Signs
Temp Pulse Resp BP Pulse Ox
98.1 F 74 13 148/94 96
09/30/25 07:00 09/30/25 08:00 09/30/25 08:00 09/30/25 08:00 09/29/25 20:00
Intake & Output
09/28/25 09/29/25 09/30/25 10/01/25
06:59 06:59 06:59 06:59
Intake Total 1080 / 1080 0 / 0 2160 / 2160
Output Total 1075 / 1075 2550 / 2550
Balance 1080 / 1080 -1075 / -1075 -390 / -390
Physical Exam
Physical Exam
General: No acute distress, AAOX3
Neck: Negative JVD
Heart: Regular, Negative S3 positive S1/S2, Negative S4, No murmur
Lungs: CTA b/l, negative wheezes/rales/rhonchi
Abd: Positive BS, NT/ND, neg rebound/rigidity/guarding
Ext: Negative cyanosis/clubbing/edema
Neuro: nonfocal
[2025-09-30] MEDS: VITAMIN B-12 1000 MCG PO (09:01)
[2025-09-30] MEDS: PLAVIX 75 MG PO (09:02)
[2025-09-30] MEDS: LOW STRENGTH ASPIRIN 81 MG PO (09:02)
--- NOTE | 2025-09-30 10:34 | W.PN.HOSP.TC ---
Today's Communication/Plan
-
No syncopal episodes overnight
CTA with stable right vertebral artery occlusion, resolution of R MEDICAL SUPERVISOR occlusion
Assessment / Plan
Assessment / Plan
Patient is a 45 y/o male without significant past medical history who presents with dizziness associated with ringing in the ears and black spots in visual field. Patient reports over the past week he has had several transient episodes of black
spots in his visual field. 09/26 symptoms were much worse with dizziness, and a transient episodes of difficulty speaking prompting him to come to the emergency department for evaluation. In the ED CT head showed no intracranial abnormalities CTA
right MEDICAL SUPERVISOR right vertebral artery occlusion, arachnoid cyst with mass effect, patient was given aspirin and Plavix, and was determined to not be a TNK candidate. Patient was admitted for further stroke workup and neurology was consulted.
Echocardiogram with normal LVEF and negative bubble study, brain MRI showed acute infarction in the right occipital lobe, extending to the right temporal lobe infarction of the coracoid plexus and the right lateral ventricle small hemorrhagic
transformation within that region and a acute infarct in the right cerebral hemisphere. Cardiology was consulted for possible cardioembolic source of stroke, obtain EHSAN with similar findings to TTE. During hospital stay patient had prolonged sinus
pauses with syncope and return to sinus rhythm with no intervention. Patient was moved to IVU for further monitoring and had 2 more episodes of prolonged sinus pauses and 1 more episode of syncope with return to sinus rhythm with no intervention.
Pauses were thought to be due to hypoperfusion of the brainstem area and a repeat CTA was conducted which found no progression of right vertebral artery occlusion and resolution of right MEDICAL SUPERVISOR occlusion. Over the next few days patient did not have
any more sinus pauses.
#CVA
Acute Stroke secondary to occlusion of t of right posterior cerebral artery, right vertebral artery seen on CTA
CT head with no acute bleed, 3.9 cm arachnoid cyst causing mild mass effect on right cerebrallum and cerebellar vermis
S/p aspirin Plavix load in the ED
Permissive hypertension for 24 hours
-Consult Neurology
-Consult cardiology, appreciate recs
Negative bubble study, ordered EHSAN pending
If negative EHSAN considering 2 to 4-week monitor to evaluate for arrhythmia
Low threshold for PPM in setting of syncopal episodes, continue to monitor for the next 24 hours
- Brain MRI Focal area of acute infarction posterior and medial right occipital lobe, also extending to the posteromedial and superior right temporal lobe. right lateral ventricle, which is likely acute to subacute infarction of the choroid
plexus, mall component of associated hemorrhagic transformation within this region of infarction, acute infarct involving the inferior aspect of the right cerebellar hemisphere.
-Echocardiogram with bubble LVEF 55-60% negative bubble study
-EHSAN with no PFO
- HgbA1c 5.2
- Lipid Panel total cholesterol 240, triglycerides 140, LDL 169, VLDL 28, HDL 43
-Consult PT/OT, no dysphagia or dysarthria
- Continue aspirin 81mg Daily and clopidogrel 75mg Daily for 21 days and then aspirin monotherapy indefinitely
- atorvastatin 80 mg
-Hypercoagulable workup with heme-onc outpatient
- Repeat CTA showed stable occlusion of her right vertebral artery, resolution of right MEDICAL SUPERVISOR occlusion
#Uncontrolled Hypertension
Secondary to CVA
On presentation 202/128
-lisinopril 5 mg daily
-hydralazine PRN
DVT proph: SCDs
Code Status: Full Code
Anticipated Discharge: 24 - 48 hours
Subjective/Interval History
-
Patient was seen at bedside with family present. He reports no sinus pauses or syncope yesterday, no worsening neurological deficits. No headaches no shortness of breath no chest pain no palpitations no nausea no vomiting. Date of Service:
September 30, 2025
Objective Data
-
Labs:
Laboratory Results
09/30/25
05:52
WBC 11.0 H
Hgb 14.9
Hct 41.6
Plt Count 271
Sodium 138
Potassium 4.0
Chloride 103
Carbon Dioxide 25
BUN 11
Creatinine 0.7
Glucose 106 H
Calcium 9.7
Vital Signs:
Vital Signs
Temp Pulse Resp BP Pulse Ox
98.1 F 74 13 148/94 96
09/30/25 07:00 09/30/25 08:00 09/30/25 08:00 09/30/25 08:00 09/29/25 20:00
I&O
09/29/25 09/30/25 10/01/25
06:59 06:59 06:59
Intake Total 0 / 0 2160 / 2160
Output Total 1075 / 1075 2550 / 2550
Balance -1075 / -1075 -390 / -390
Review of Systems
-
History Source: Patient and Family
Constitutional: Denies Fever or Chills
EENT: Denies Runny Nose
Respiratory: Denies Cough or Trouble Breathing
Cardiac: Denies Chest Pain, Palpitations or Syncope
Abdomen/GI: Denies Abdominal Pain, Nausea, Vomiting, Diarrhea or Constipated
Neuro: Reports Other (Visual field deficit); Denies Headache, Weakness or Numbness
Physical Exam
-
General: Well Developed, Well Nourished, No Apparent Distress and Comfortable; Negative Fever
HEENT: Normocephalic and Atraumatic
Respiratory: Clear to Auscultation and Non Labored Respirations; Negative Wheezes or Crackles
Cardiac: Regular Rhythm and S1/S2; Negative Murmur
GI: Soft, Nontender, Nondistended and Normal Bowel Sounds
Musculoskeletal: No Clubbing and No Edema
Skin: Warm and Dry
Neuro: Awake, Alert and Oriented
--- NOTE | 2025-09-30 17:10 | CM ---
met patient with family
await PT to eval
CM Consult complete-dc planning
PLAN: Home, await PT rec, CM to follow for discharge planning/needs
--- NOTE | 2025-09-30 17:30 | PTCARENOTE ---
Patient feeling good today. NIH score of 1. Left eye vision only deficit. SR on monitor with HR 70-90. No bradycardia, no pauses. Patient denies feeling dizzy or lightheaded. Patient given the ok to ambulate. Patient steady on his feet and
ambulating in room and to bathroom without difficulty. VS stable.
[2025-09-30] MEDS: LIPITOR 80 MG PO (18:16)
[2025-10-01] VITALS (10 sets, daily range): BP systolic 127–145; BP diastolic 88–100; PULSE 69
--- NOTE | 2025-10-01 01:18 | PTCARENOTE ---
assumed care of patient. pt is AAOx3, able to make needs known. VSS. pt able to walk into bathroom by self without issues. NIH-1, left eye still with some blurriness. neuro checks WNL. pt did complain of some gas in beginning of the shift, notified
covering SALES SYSTEMS ENGINEER and medication ordered. gas resolved on own before medication was given. care ongoing.
[2025-10-01] MEDS: VITAMIN B-12 1000 MCG PO (07:43)
[2025-10-01] MEDS: PLAVIX 75 MG PO (07:44)
[2025-10-01] MEDS: LOW STRENGTH ASPIRIN 81 MG PO (07:44)
--- NOTE | 2025-10-01 08:00 | PTCARENOTE ---
Pt AAOx3, offering no complaints at this time. Ambulated to without incident. L eye blurry vision.
--- NOTE | 2025-10-01 08:06 | W.PN.CARDCBS ---
Addendum entered and electronically signed by Prudencio Woods MD 10/01/25 11:06:
Patient seen, interviewed and examined by me.
Well-appearing, no acute distress
Regular rate and rhythm with normal S1 and S2, no S3 no S4. There is a grade 1/6 apical holosystolic murmur and no rubs. PMI is normally placed.
Lungs are clear to auscultation bilaterally without wheezes rales or rhonchi.
Abdomen soft nontender nondistended with normoactive bowel sounds
Extremities show trace pretibial edema bilaterally no clubbing or cyanosis.
Neurologic exam is grossly nonfocal.
I met with the patient and his and we reviewed his case including his imaging findings and how this may play a role in his passing out and his bradycardia. In particular, the finding of mild mass effect on the right cerebellar hemisphere
suggest increased intracranial pressure. This often results in increase in blood pressure (he has been hypertensive and just yesterday still with blood pressures as high as 166/104) which then triggers the baroreceptor reflex. This reflex can then
result in vagal nerve stimulation leading to excessive parasympathetic discharges and ultimately resulting in bradycardia including sinus bradycardia and sinus pauses which could trigger syncope.
Clinically it appears she has been improving.
He has no evidence of cardiac structural disease and otherwise has not demonstrated any conduction system disturbances outside of this acute/subacute event.
It is likely that as he continues to recover from his acute event it would be unlikely that he has recurrent marked/symptomatic bradycardia.
Therefore I have recommended holding off on permanent pacemaker implantation. Instead I recommended an observational follow-up approach to include 14 days of continuous outpatient heart rate and rhythm monitoring (life monitoring via rhythm star)
with appropriate driving restrictions to be determined by neurology but I would expect a 3 to 6-month driving restriction.
Should he continue to have long and symptomatic pauses then implantation of permanent pacemaker would be the next practical step to take.
Primary service to manage hypertension in the setting of his recent acute/subacute stroke.
Discussed with the patient and his . All of their questions have been answered.
Original Note:
Today's Communication / Plan
-
No plans for PPM, sinus pauses could be due to mild mass effect seen on MRI and vagal mechanism
30-day outpatient rhythm star monitor to be placed just prior to discharge, please call cardiology back when discharge plan is finalized
Impression / Plan
-
PCP: Dr. Prudencio Carrasquillo
Primary gold frame assembler: None prior to admission
Impression:
Presentation with dizziness, left vision loss, transient dysarthria 09/26/2025
CVA with acute to subacute infarct in the posterior and medial right occipital lobe extending to the posteromedial and superior right temporal lobe by MRI 09/28/2025
Acute near occlusion of proximal right vertebral artery and acute complete occlusion of P3 of right posterior cerebral artery by head CTA 09/26/25
Syncope
Associated with sinus pauses 09/28/2025
Recurrent symptomatic sinus pauses
10-second pause 09/28/2025
11.5-second pause 09/29/2025
Elevated CRP
Low B12
ECHO 09/27/2025: EF 55 to 60%, no significant valvular disease, bubble study negative
EHSAN 09/28/2025: No cardiac source of embolus identified, no PFO on color-flow or agitated saline injection
Plan:
-Patient presented with dizziness, left sided vision loss and transient dysarthria. Head CT with acute near occlusion of proximal right vertebral artery and acute complete occlusion of P3 of right posterior cerebral artery. Did not receive TNK and
was not felt to be candidate for IAT. MRI of the brain then showed evidence of acute to subacute infarction in the posterior medial right occipital lobe extending into the right posteromedial and superior right temporal lobes on 09/28/2025. Patient
then noted to have symptomatic sinus pauses
-Patient noted to have an episode of syncope associated with a 10-second pause on 09/28/2025. There was a thought that this could have been vagal as he was eating dry crackers shortly after his EHSAN 09/28/2025. Initially the plan was to check an
outpatient monitor, but patient had another pause on 09/29/2025 for 11.5 seconds that was not associated with eating and plan to discharge was deferred.
-Telemetry reviewed by me 4 09/30/2025 and 10/01/2025 thus far and there are no recurrent pauses. Patient denies any recurrent symptoms of near-syncope or syncope.
-Hospitalist attending and neurology notes from this admission reviewed by me on 10/01/2025 and there are areas of acute infarct in the posterior medial right occipital lobe extending into the posterior medial and superior right temporal lobe with a
small component of associated hemorrhagic transformation plus a punctate focus of acute infarct in the inferior aspect of the right cerebellar hemisphere. In addition there is an arachnoid cyst in the right posterior fossa with mild mass effect on
the right cerebellar hemisphere and the cerebellar vermis.
-There is a possibility that this mild mass effect and areas of stroke could be the source of his sinus pauses by way of a vagal mechanism. No recurrent pauses in the last 36 hours.
-Plan from a cardiac standpoint is for a 30-day rhythm star real-time monitor that would be placed at the time of discharge.
-Patient was told he cannot drive until completion of monitor and he may have driving restrictions that extend beyond cardiac indications and are related to his stroke and should be outlined separately by neurology.
-No obvious cardioembolic source for his stroke by EHSAN and bubble study was negative on TTE and EHSAN
-Will also look for any atrial arrhythmia during his 30-day monitor
-Patient is otherwise stable for discharge from a cardiac standpoint and once discharge plan is determined we will place a monitor car operator just prior to discharge.
-Hospitalization thus far and plans for outpatient management reviewed with patient and over the phone and then at the bedside for 20 minutes on 10/01/2025
-Cardiology follow-up arranged
Progress Note - Fish Cutter
Subjective
Date of Service: October 01, 2025
He feels well, he denies any focal or lateralizing weakness
Objective
Labs:
Labs
Hgb 14.9 g/dL (13.0-18.0) 09/30/25 05:52
Hct 41.6 % (39.0-52.0) 09/30/25 05:52
Plt Count 271 10^3/uL (130-400) 09/30/25 05:52
PT 12.2 Sec (11.4-14.6) 09/26/25 21:37
INR 0.86 09/26/25 21:37
APTT 28.6 Sec (23.4-35.0) 09/26/25 21:37
Sodium 138 mmol/L (135-145) 09/30/25 05:52
Potassium 4.0 mmol/L (3.5-5.1) 09/30/25 05:52
BUN 11 mg/dl (9-20) 09/30/25 05:52
Creatinine 0.7 mg/dL (0.7-1.3) 09/30/25 05:52
Glucose 106 mg/dl (70-99) H 09/30/25 05:52
Troponins
09/28/25
18:15
Troponin I < 0.012
Vital Signs and I&O:
Vital Signs
Temp Pulse Resp BP Pulse Ox
97.7 F 59 15 142/98 97
10/01/25 07:29 10/01/25 06:00 10/01/25 06:00 10/01/25 06:00 09/30/25 20:23
Vital Signs
Temp Pulse Resp BP Pulse Ox
97.7 F 59 15 142/98 97
10/01/25 07:29 10/01/25 06:00 10/01/25 06:00 10/01/25 06:00 09/30/25 20:23
Intake & Output
09/29/25 09/30/25 10/01/25 10/02/25
06:59 06:59 06:59 06:59
Intake Total 0 / 0 2160 / 2160 960 / 960
Output Total 1075 / 1075 2550 / 2550 420 / 420
Balance -1075 / -1075 -390 / -390 540 / 540
Physical Exam
Physical Exam
General: NAD, AAO x 3
Heart: SR on telemetry.
Lungs: RA. No wheeze
[2025-10-01 08:40] LABS: Hematocrit 45.6 % (39.0-52.0); Hemoglobin 15.7 g/dL (13.0-18.0); Mean Corp Hgb Conc. 34.4 g/dL (33.0-37.0); Mean Corpuscular Volume 85.7 fL (80.0-94.0); Platelet Count 294 10^3/uL (130-400); Red Cell Dist. Width 12.4 % (11.5-14.5)
[2025-10-01 09:09] LABS: Blood Urea Nitrogen 11 mg/dl (9-20); Calcium 9.8 mg/dl (8.4-10.2); Carbon Dioxide 23 mmol/L (22-30); Chloride 104 mmol/L (98-107); Estimated Creatinine Clearance 122 ml/min; Glucose 93 mg/dl (70-99); Potassium 4.3 mmol/L (3.5-5.1); Sodium 138 mmol/L (135-145); eGFR > 60.00
--- NOTE | 2025-10-01 12:04 | W.PN.HOSP.TC ---
Addendum entered and electronically signed by Eileen Mclaughlin MD 10/01/25 14:50:
Attending�addendum:
I saw and evaluated the patient. I reviewed the resident�s note and agree with findings and plan as documented in the resident�s note.��patient seen and examined at bedside, at bedside, denies any chest pain or shortness of breath, no abdominal
pain, no nausea, no vomiting, no diarrhea or constipation.
Physical�exam:
GENERAL : Patient is awake, alert, oriented x3
HEENT: Nonicteric sclerae, PERRLA, EOMI. Oropharynx clear. Moist mucous membranes. Conjunctivae appear well perfused.
CHEST: Chest wall is nontender.
HEART: Regular rate and rhythm without murmurs.
LUNGS: Clear to auscultation bilaterally.
ABDOMEN: Soft, positive bowel sounds, nontender, no organomegaly.
RECTAL: Deferred.
MUSCLES/EXTREMITIES: No abnormal range of motion, no swelling.SKIN: No rash, no excessive bruising, petechiae, or purpura.
NEUROLOGIC: Cranial nerves II-XII intact without motor/sensory deficit.
�
Assessment/plan:
Acute CVA
Continue aspirin/Plavix/statin.
Ultrasound lower extremity pending.
Appreciate neurology input
Uncontrolled essential hypertension.
Continue lisinopril
Bradycardia/pauses
Resolved
Seen by cardiology, no indication for pacemaker.
Follow-up as outpatient for manager monitoring
CODE STATUS: Full code
DVT prophylaxis: SCDs
Diet: Regular diet
Family communication: Discussed with family at bedside
Disposition: Ultrasound lower extremity pending.
�
Total time spent on today�s encounter was 60 minutes which included time spent in counseling the patient/family regarding diagnosis and treatment plan as listed above, goals of care, and symptom management. Case was discussed with nursing staff,
specialists, and care coordinators/case management. All labs and imaging personally reviewed by me. Remainder the time spent in detailed review of previous records, lab data, imaging, and other medical provider documentation.
Original Note:
Today's Communication/Plan
-
PT OT
Dispo planning
Assessment / Plan
Assessment / Plan
Patient is a 45 y/o male without significant past medical history who presents with dizziness associated with ringing in the ears and black spots in visual field. Patient reports over the past week he has had several transient episodes of black
spots in his visual field. 09/26 symptoms were much worse with dizziness, and a transient episodes of difficulty speaking prompting him to come to the emergency department for evaluation. In the ED CT head showed no intracranial abnormalities CTA
right [employer] right vertebral artery occlusion, arachnoid cyst with mass effect, patient was given aspirin and Plavix, and was determined to not be a TNK candidate. Patient was admitted for further stroke workup and neurology was consulted.
Echocardiogram with normal LVEF and negative bubble study, brain MRI showed acute infarction in the right occipital lobe, extending to the right temporal lobe infarction of the coracoid plexus and the right lateral ventricle small hemorrhagic
transformation within that region and a acute infarct in the right cerebral hemisphere. Cardiology was consulted for possible cardioembolic source of stroke, obtain EHSAN with similar findings to TTE. During hospital stay patient had prolonged sinus
pauses with syncope and return to sinus rhythm with no intervention. Patient was moved to IVU for further monitoring and had 2 more episodes of prolonged sinus pauses and 1 more episode of syncope with return to sinus rhythm with no intervention.
Pauses were thought to be due to hypoperfusion of the brainstem area and a repeat CTA was conducted which found no progression of right vertebral artery occlusion and resolution of right [employer] occlusion. Over the next few days patient did not have
any more sinus pauses.
#CVA
Acute Stroke secondary to occlusion of t of right posterior cerebral artery, right vertebral artery seen on CTA
CT head with no acute bleed, 3.9 cm arachnoid cyst causing mild mass effect on right cerebrallum and cerebellar vermis
S/p aspirin Plavix load in the ED
Permissive hypertension for 24 hours
-Consult Neurology
-Consult cardiology, appreciate recs
Negative bubble study, ordered EHSAN pending
If negative EHSAN considering 2 to 4-week monitor to evaluate for arrhythmia
Low threshold for PPM in setting of syncopal episodes
- Brain MRI Focal area of acute infarction posterior and medial right occipital lobe, also extending to the posteromedial and superior right temporal lobe. right lateral ventricle, which is likely acute to subacute infarction of the choroid
plexus, mall component of associated hemorrhagic transformation within this region of infarction, acute infarct involving the inferior aspect of the right cerebellar hemisphere.
-Echocardiogram with bubble LVEF 55-60% negative bubble study
-EHSAN with no PFO
- HgbA1c 5.2
- Lipid Panel total cholesterol 240, triglycerides 140, LDL 169, VLDL 28, HDL 43
-Consult PT/OT, no dysphagia or dysarthria
- Continue aspirin 81mg Daily and clopidogrel 75mg Daily for 21 days and then aspirin monotherapy indefinitely
- atorvastatin 80 mg
-Hypercoagulable workup with heme-onc outpatient
- Repeat CTA showed stable occlusion of her right vertebral artery, resolution of right [employer] occlusion
#Uncontrolled Hypertension
Secondary to CVA
On presentation 202/128
-lisinopril 5 mg daily
-hydralazine PRN
DVT proph: SCDs
Code Status: Full Code
Anticipated Discharge: Within 24 hours
Subjective/Interval History
-
Patient was seen at bedside with present. He reports doing well with no issues overnight no sinus pauses no syncopal episodes. No chest pain no shortness of breath no nausea no vomiting no abdominal pain no fevers no chills. Date of Service:
October 01, 2025
Objective Data
-
Labs:
Laboratory Results
10/01/25
08:20
WBC 8.3
Hgb 15.7
Hct 45.6
Plt Count 294
Sodium 138
Potassium 4.3
Chloride 104
Carbon Dioxide 23
BUN 11
Creatinine 0.8
Glucose 93
Calcium 9.8
Vital Signs:
Vital Signs
Temp Pulse Resp BP Pulse Ox
97.8 F 72 16 139/99 96
10/01/25 11:30 10/01/25 11:01 10/01/25 11:01 10/01/25 11:01 10/01/25 08:34
I&O
09/30/25 10/01/25 10/02/25
06:59 06:59 06:59
Intake Total 2160 / 2160 960 / 960
Output Total 2550 / 2550 420 / 420
Balance -390 / -390 540 / 540
Review of Systems
-
History Source: Patient and Family
Constitutional: Denies Fever or Chills
EENT: Reports Decreased Vision; Denies Runny Nose
Respiratory: Denies Cough or Trouble Breathing
Cardiac: Denies Chest Pain, Palpitations or Syncope
Abdomen/GI: Denies Abdominal Pain, Nausea, Vomiting, Diarrhea or Constipated
Genitourinary: Denies Dysuria
Neuro: Denies Dizzy, Headache, Weakness or Ataxia
Physical Exam
-
General: Well Developed, Well Nourished, No Apparent Distress and Comfortable; Negative Fever
HEENT: Normocephalic and Atraumatic
Respiratory: Clear to Auscultation and Non Labored Respirations; Negative Wheezes or Crackles
Cardiac: Regular Rhythm and S1/S2; Negative Murmur
GI: Soft, Nontender, Nondistended and Normal Bowel Sounds
Musculoskeletal: No Clubbing and No Edema
Skin: Warm and Dry
Neuro: Awake, Alert and Oriented
--- NOTE | 2025-10-01 14:27 | W.PN.NEURO.1 ---
Addendum entered and electronically signed by Kit Schuster MD 10/01/25 21:21:
The hypercoagulable state workup is in progress.
Addendum entered and electronically signed by Kit Schuster MD 10/01/25 21:16:
I have seen and examined the patient today along with the nurse practitioner Bibi Bro, and I agree with her assessment and management plan. Following is my addendum.
The patient is a 45 years old male who presented with right [employer] territory infarct and he had left homonymous hemianopsia. The etiology of the stroke appears to be embolic for which a 30-day Holter monitor was recommended.
Neurologic Examination:,
The patient is alert and oriented x 3,
The speech is clear,
The cranial nerves II to XII are grossly intact, the patient does not appear to have a definite visual field deficit,
Motor strength is grossly 5/5 bilaterally,
The sensations are grossly intact,
The cerebellar examination does not show limb ataxia.
The patient had an acute right [employer] territory infarction which is likely embolic in etiology for which a Holter monitor for 30 days is recommended.
MRI brain: Focal area of acute to subacute infarction involving the posterior and medial right occipital lobe, also extending to involve the posteromedial and superior right temporal lobe. Punctate focus of acute to subacute infarct involving the
inferior aspect of the right cerebellar hemisphere.
The patient is going to be on a stroke pathway.
An ophthalmology consult is recommended for formal visual field examination.
The patient should not drive until cleared by ophthalmology for any visual field deficit. The patient was told about driving restrictions and he verbalized understanding.
The patient is going to be on aspirin and clopidogrel, he will stop clopidogrel after 21 days and will continue aspirin.
The patient is also going to be on atorvastatin 80 mg nightly.
Follow-up in neurology clinic in 2 weeks after discharge.
I had a detailed discussion with the patient, regarding the assessment and the management plan, and he verbalized understanding of our discussion.
Original Note:
Documented by User: Bibi Bro NP 10/01/25 14:47
Today's Communication / Plan
-
.
Neuro Assessment/Plan
Assessment
R [employer] Stroke c/b [facility]
The possibility of a hypercoagulable state as well as thrombo or cardioembolic source are not illuminated at this time.
EHSAN negative
syncope
Plan
Ultrasound bilateral lower extremities pending to rule out DVT.
Continue newly initiated aspirin and clopidogrel; continue aspirin lifelong and discontinue clopidogrel after 21 doses
No pacemaker per Cardiology. 30 day Holter monitor per Cardiology, if this is unremarkable would recommend ILR placement.
Outpatient heme-onc evaluation for hypercoagulable state, basic hypercoagulable labs ordered.
Goal of normotension
LDL goal <70. LDL is 169. Atorvastatin 80 mg nightly is to be continued
Goal normoglycemia, hbA1c is 5.2.
Continue cyanocobalamin
Rehabilitation evaluations and treatment
NIHSS and neurological checks per unit guidelines.
Provide patient's family with a stroke education packet.
DVT prophylaxis.
No driving. Needs ophthalmology clearance with formal visual field testing prior to resuming driving.
Follow-up with Neurology as an outpatient.
Subjective/Objective
Subjective Data
Date of Service: October 01, 2025
No acute events overnight.
Objective Data
Vital Signs
Temp Pulse Resp BP Pulse Ox
97.8 F 73 16 138/100 96
10/01/25 11:30 10/01/25 14:00 10/01/25 14:00 10/01/25 12:02 10/01/25 08:34
Lab Results
10/01/25 08:20
10/01/25 08:20
PT 12.2 Sec (11.4-14.6) 09/26/25 21:37
INR 0.86 09/26/25 21:37
APTT 28.6 Sec (23.4-35.0) 09/26/25 21:37
Sodium 138 mmol/L (135-145) 10/01/25 08:20
Potassium 4.3 mmol/L (3.5-5.1) 10/01/25 08:20
BUN 11 mg/dl (9-20) 10/01/25 08:20
Glucose 93 mg/dl (70-99) 10/01/25 08:20
Calcium 9.8 mg/dl (8.4-10.2) 10/01/25 08:20
LDL Cholesterol, Calc 169 mg/dl 09/27/25 08:59
Vitamin B12 200 pg/ml (239-931) L 09/27/25 08:59
Patient Allergies
No Known Allergies Allergy (Verified 09/26/25 23:02)
LDL Level: >70, statin ordered
Review of Systems
-
EENT: Decreased Vision; Negative Swallowing Difficulty
Neuro: Negative Dizzy, Headache, Weakness, Numbness, Ataxia, Tremors or Speech Problem
Physical Exam
-
General: Well Developed, Well Nourished and No Apparent Distress
Eyes: No Ptosis and PERRLA
HEENT: Normocephalic and Atraumatic
Neck: Full Range of Motion
GI: Non-distended
Extremities: No Clubbing, No Cyanosis and No Edema
Extended Neurological Exam
Mood & Affect: Mood Unremarkable and Affect Unremarkable
Attention Span & Concentration: Awake, Alert and Interactive
Memory: Unremarkable and Able to Recall
Tremor: Hand Tremor Absent and Head Tremor Absent
Involuntary Movement: None
Speech: Quality Unremarkable, Quantity Unremarkable and Rate of Production Unremarkable
Cranial Nerve II: Left Eye: Pupillary Reactivity Unremarkable, Pupillary Size Unremarkable and Visual Dominguez Intact (no overt visual deficit today)
Cranial Nerve II: Right Eye: Pupillary Reactivity Unremarkable, Pupillary Size Unremarkable and Visual Dominguez Intact (no overt visual deficit today)
Cranial Nerves III, IV, : Extraocular Movement: Extraocular Movement Full in all Directions
Cranial Nerve VII: Facial Symmetry: Normal Facial Symmetry
Cranial Nerve VIII: Hearing: Unremarkable Hearing to Normal Conversational Volume
Cranial Nerve XI: Shoulder Shrug: Unremarkable
Cranial Nerve XII: Tongue Protusion: Midline
Muscle Strength, Overall: Full Throughout
Pronator Drift: No Drift in Upper Extremities and No Drift in Lower Extremities
Touch Sensation: Double Simultaneous Stimulation Unremarkable
Coordination: Koprko-tnjz-grmsih Testing Unremarkable and Edeg-Loxy-Hwlc movements intact bilaterally
Modified Navajo Score (MRS)
-
Modified [place] Scale (mRS): Slight disability. Able to look after own affairs.
Score: 2
Data Reviewed
-
MRI Head: Report Reviewed and Image Reviewed
Echocardiogram: Report Reviewed
Labs: Report Reviewed
Lipid Profile: Report Reviewed
HgbA1C: Report Reviewed
Reviewed with: Physician, Patient and Family
Medications
-
Active Medications
Generic Name Dose Route Start Last Admin
Trade Name Freq PRN Reason Stop Dose Admin
Acetaminophen 650 mg 09/27/25 02:28
Acetaminophen 650 Mg Rectal Suppository RECTAL 10/25/25 02:27
Q4HPRN PRN
BURCH, mild pain, or temp >100.4F
Acetaminophen 650 mg 09/27/25 02:28 09/28/25 22:53
Acetaminophen 325 Mg Tablet PO 10/25/25 02:27 650 mg
Q4HPRN PRN Administration
BURCH, mild pain, or temp >100.4F
Aspirin 81 mg 09/27/25 08:00 10/01/25 07:44
Aspirin 81 Mg Chewable Tablet PO 10/25/25 07:59 81 mg
DAILY ZAINA Administration
Atorvastatin Calcium 80 mg 09/27/25 18:00 09/30/25 18:16
Atorvastatin (Lipitor) 40 Mg Tablet PO 10/25/25 17:59 80 mg
QPM ZAINA Administration
Atropine Sulfate 1 mg 09/29/25 21:48
Atropine Sulfate 1 Mg/10 Ml Syringe IV 10/27/25 21:47
PRN PRN
symptomatic bradycardia
Clopidogrel Bisulfate 75 mg 09/27/25 08:00 10/01/25 07:44
Clopidogrel 75 Mg Tablet PO 10/25/25 07:59 75 mg
DAILY ZAINA Administration
Cyanocobalamin 1,000 mcg 09/28/25 08:30 10/01/25 07:43
Cyanocobalamin (Vitamin B-12) 500 Mcg Tablet PO 10/26/25 08:29 1,000 mcg
DAILY ZAINA Administration
Docusate Sodium 100 mg 09/30/25 08:00 10/01/25 07:45
Docusate Sodium 100 Mg Capsule PO 10/28/25 07:59 Not Given
BID ZAINA
Hydralazine HCl 5 mg 09/27/25 02:28
Hydralazine 20 Mg/Ml Vial IV 10/25/25 02:27
Q4HPRN PRN
SBP>220, or DBP>120
Lisinopril 5 mg 09/28/25 13:00 09/28/25 15:21
Lisinopril 5 Mg Tablet PO 10/26/25 12:59 5 mg
On Hold: 09/29/25 07:36 DAILY ZAINA Administration
Ondansetron HCl 4 mg 09/27/25 13:53 09/28/25 18:48
Ondansetron 4 Mg Tablet PO 10/25/25 13:52 4 mg
Q8HPRN PRN Administration
nausea
Simethicone 80 mg 09/30/25 19:27
Simethicone 80 Mg Chewable Tablet PO 10/28/25 19:26
QIDPRN PRN
gas pain
Sodium Chloride 0 flush 09/27/25 03:00 09/29/25 09:26
Sodium Chloride 0.9% (Flush) Syringe IV 10/25/25 02:59 1 flush
PER PROTOCOL ZAINA Administration
Home Medications
�Medication �Instructions �Recorded
No Meds [No Current Medications] 09/26/25

Documented by User: Kit Schuster MD 10/01/25 20:56
Modified Alvin Score (MRS)
-
Score: 2
--- NOTE | 2025-10-01 14:53 | CM ---
F/U: ARUN Quiles saw that patient is being recommended for Outpatient PT/OT thus far. Case Management to follow up if there are other needs. ARUN Quiles provided the 2 [facility]patient centers information to the patient, one in [place]
and the other in [place]. PLAN: Outpatient PT/OT, will need script.
--- NOTE | 2025-10-01 16:51 | W.DCSUMMARY ---
Addendum entered and electronically signed by Eileen Mclaughlin MD 10/02/25 08:05:
Attending�addendum:
I saw and evaluated the patient. I reviewed the resident�s note and agree with findings and plan as documented in the resident�s note.��patient seen and examined at bedside, at bedside, denies any chest pain or shortness of breath, no abdominal
pain, no nausea, no vomiting, no diarrhea or constipation.
Physical�exam:
GENERAL : Patient is awake, alert, oriented x3
HEENT: Nonicteric sclerae, PERRLA, EOMI. Oropharynx clear. Moist mucous membranes. Conjunctivae appear well perfused.
CHEST: Chest wall is nontender.
HEART: Regular rate and rhythm without murmurs.
LUNGS: Clear to auscultation bilaterally.
ABDOMEN: Soft, positive bowel sounds, nontender, no organomegaly.
RECTAL: Deferred.
MUSCLES/EXTREMITIES: No abnormal range of motion, no swelling.SKIN: No rash, no excessive bruising, petechiae, or purpura.
NEUROLOGIC: Cranial nerves II-XII intact without motor/sensory deficit.
�
Assessment/plan:
Acute CVA
Continue aspirin/Plavix/statin.
Ultrasound lower extremity pending.
Appreciate neurology input
Uncontrolled essential hypertension.
Continue lisinopril
Bradycardia/pauses
Resolved
Seen by cardiology, no indication for pacemaker.
Follow-up as outpatient for cardiac surgeon
CODE STATUS: Full code
DVT prophylaxis: SCDs
Diet: Regular diet
Family communication: Discussed with family at bedside
Disposition: DC home today
Total time spent on today�s encounter was 40 minutes which included time spent in counseling the patient/family regarding diagnosis and treatment plan as listed above, goals of care, and symptom management. Case was discussed with nursing staff,
specialists, and care coordinators/case management. All labs and imaging personally reviewed by me. Remainder the time spent in detailed review of previous records, lab data, imaging, and other medical provider documentation.
Original Note:
Documented by User: Bruce Bass MD, Resident 10/01/25 17:12
Discharge Summary
Discharge Data
Date of Admission: 09/27/25
Date of Discharge: 10/01/25
-
Pending Results: Yes
Additional Pending Results:
Anticardiolipin IgG, IgA, IgM
Phosphatidylserine IgG, IgA, IgM
Beta-2 GPI IgG, IgA, IgM
Hospital Course
Discharging Physician :
Dr. Mclaughlin
Dr. Bass
Disposition :
Home
Primary care physician :
Prudencio Carrasquillo
Principal Discharge diagnosis :
CVA
Chronic Discharge diagnosis :
Hospital Course :
Mr. Perdue Is a 45 y/o male without significant past medical history who presents with dizziness associated with ringing in the ears and black spots in visual field. Patient reports over the past week he has had several transient episodes of black
spots in his visual field. 09/26 symptoms were much worse with dizziness, and a transient episodes of difficulty speaking prompting him to come to the emergency department for evaluation. In the ED CT head showed no intracranial abnormalities CTA
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 Patient was admitted for further stroke workup and neurology was consulted.
Echocardiogram with normal LVEF and negative bubble study, brain MRI showed acute infarction in the right occipital lobe, extending to the right temporal lobe infarction of the coracoid plexus and the right lateral ventricle small hemorrhagic
transformation within that region and a acute infarct in the right cerebral hemisphere. After permissive hypertension patient was started on antihypertensive medication due to sustained hypertension during his hospital stay. Cardiology was
consulted for possible cardioembolic source of stroke, obtain EHSAN with similar findings to TTE. During hospital stay patient had prolonged sinus pauses with syncope and return to sinus rhythm with no intervention. Patient was moved to IVU/IMU for
further monitoring and had 2 more episodes of prolonged sinus pauses and 1 more episode of syncope with return to sinus rhythm with no intervention. Pauses were thought to be due to hypoperfusion of the brainstem area and a repeat CTA was conducted
which found no progression of right vertebral artery occlusion and resolution of right SLATE SPLITTING SUPERVISOR occlusion. Over the next few days patient did not have any more sinus pauses. Cardiology monitored patient for permanent pacemaker placement however decided
instead to do prolonged cardiac monitoring due to no more episodes. Patient was evaluated by PT and deemed stable for home discharge. At discharge AFVSS.
Important imaging findings :
09/26/2025 CT head:
IMPRESSION:
1. No CT evidence for acute intracranial hemorrhage or transcortical infarct.
2. 3.9 cm arachnoid cyst in the right side of the posterior fossa causing mild mass effect on the right cerebellar hemisphere and cerebellar vermis.
3. 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
09/26/2025 head/neck CTA:
IMPRESSION:
NECK CTA:
1. ACUTE NEAR OCCLUSION of the PROXIMAL RIGHT VERTEBRAL ARTERY at the origin with a 5 mm segment of severe luminal narrowing caused by thrombosis, embolus, or focal dissection.
2. 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
3. No CTA evidence for stenosis, occlusion, or dissection in either internal carotid artery.
HEAD CTA:
1. ACUTE COMPLETE OCCLUSION of the P3 (quadrigeminal segment) of the RIGHT POSTERIOR CEREBRAL ARTERY accounting for the ischemic changes in the right occipital lobe seen on the CT brain perfusion examination.
2. Moderate hypoplasia of the P1 segment of the left posterior cerebral artery.
3. 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
4. 3.0 cm arachnoid cyst in the right side of the posterior fossa.
09/28/2025 brain MRI:
IMPRESSION: Focal area of acute to subacute infarction involving the posterior and medial right occipital lobe, also extending to involve the posteromedial and superior right temporal lobe. There is abnormal signal involving the choroid plexus
within the atria of the right lateral ventricle, which is likely acute to subacute infarction of the choroid plexus as well.
There is a small component of associated hemorrhagic transformation within this region of infarction.
Punctate focus of acute to subacute infarct involving the inferior aspect of the right cerebellar hemisphere.
09/29/2025 head/neck CTA:
IMPRESSION: Evolution of known moderate subacute right occipital lobe infarct. No evidence of hemorrhage.
Stable occlusion of the proximal right vertebral artery at its origin.
Resolution of previous right posterior cerebral artery near complete occlusion.
Improved patency of the left posterior cerebral artery.
10/01/2025 peripheral vascular ultrasound:
IMPRESSION:
No evidence of DVT from the common femoral through the upper calf veins on either side.
Procedure findings :
09/27/2025 transthoracic echocardiogram:
SUMMARY
1. Technically fair study.
2. Normal left ventricular chamber size myocardial thickness and systolic function. Left ventricular ejection fraction 55 to 60%.
3. No significant valvular disease.
4. Agitated saline bubble study was negative.
5. No prior echo for comparison.
09/28/2025 transesophageal echocardiogram:
SUMMARY
1. Normal biventricular size and function without regional wall motion abnormalities.
2. LVEF is 60-65% by visual estimation.
3. No significant valvular disease. No obvious thrombus seen.
4. No PFO on color-flow Doppler or agitated saline injection.
5. Compared to prior no significant change.
Discharge Plan
-
Patient Disposition: Home (Routine Discharge)
Discharge Diagnosis/Procedures: CVA
Condition: Good
Diet: Low Sodium
Activity: As tolerated
Driving Restrictions: Not until seen by brand communications manager
Bathing Restrictions: OK to Shower
Others Tests: A 30 day cardiac surgeon called rhythm star is being placed prior to your discharge from the hospital. You should wear this monitor on a daily basis, but remove it to shower and then immediately replace with fresh electrode stickers.
Please do not wear the monitor in the shower and it should never be submerged in water. Please charge the monitoring unit every day while it is removed during your showering time, charging cord and brick are included. At the end of your
monitoring. Please place all monitor pieces into the attached postage paid shipping container and place in a imagoo box for delivery back to cardiology. If you have any issues with the monitor please call the cardiology office at [phone] and
press option 5 for cardiac device clinic.
Referrals:
Ilana Olsen MD [Active, Hematology / Oncology]
Ko Izaguirre MD [Active, Ophthalmology]
Prudencio Carrasquillo MD [Family Provider, Family Practice] - in less than 1 week
Emma Womack OD [Non-Admitting Privileges, Ophthalmology]
Sabra Levine CRNP [Specified Professional Personl, Cardiology] - 11/06/25 8:40 am
Referral Note: You have a cardiology follow-up appointment at the [facility] office. Please call with questions
Additional Discharge Medication Instructions: Continue aspirin and Plavix for 16 more days to fulfill 21 days, after 21 days discontinue Plavix continue aspirin indefinitely
Prescriptions:
New
atorvastatin 40 mg Tablet
80 mg PO QPM Qty: 30 0RF
clopidogrel 75 mg Tablet
75 mg PO DAILY Qty: 16 0RF
aspirin 81 mg Tablet,Chewable
81 mg PO DAILY Qty: 30 0RF
lisinopril 5 mg Tablet
5 mg PO DAILY Qty: 30 0RF
Discharge Orders:
Discharge Patient (As Directed); Ordered 10/01/25
Ordered By: Bruce Bass
Discharge Date and Time
Discharge Date/Time: 10/01/25 17:15
Print Language: ISRAELI

Documented by User: Eileen Mclaughlin MD 10/02/25 08:03
Discharge Summary
Discharge Data
Date of Admission: 09/27/25
Date of Discharge: 10/02/25
Discharge Plan
-
Patient Disposition: Home (Routine Discharge)
Discharge Diagnosis/Procedures: CVA
Condition: Good
Diet: Low Sodium
Activity: As tolerated
Driving Restrictions: Not until seen by brand communications manager
Bathing Restrictions: OK to Shower
Others Tests: A 30 day cardiac surgeon called rhythm star is being placed prior to your discharge from the hospital. You should wear this monitor on a daily basis, but remove it to shower and then immediately replace with fresh electrode stickers.
Please do not wear the monitor in the shower and it should never be submerged in water. Please charge the monitoring unit every day while it is removed during your showering time, charging cord and brick are included. At the end of your
monitoring. Please place all monitor pieces into the attached postage paid shipping container and place in a imagoo box for delivery back to cardiology. If you have any issues with the monitor please call the cardiology office at [phone] and
press option 5 for cardiac device clinic.
Referrals:
Ilana Olsen MD [Active, Hematology / Oncology]
Ko Izaguirre MD [Active, Ophthalmology]
Prudencio Carrasquillo MD [Family Provider, Family Practice] - in less than 1 week
Emma Womack OD [Non-Admitting Privileges, Ophthalmology]
Sabra Levine CRNP [Specified Professional Personl, Cardiology] - 11/06/25 8:40 am
Referral Note: You have a cardiology follow-up appointment at the [facility] office. Please call with questions
Additional Discharge Medication Instructions: Continue aspirin and Plavix for 16 more days to fulfill 21 days, after 21 days discontinue Plavix continue aspirin indefinitely
Prescriptions:
New
atorvastatin 40 mg Tablet
80 mg PO QPM Qty: 30 0RF
clopidogrel 75 mg Tablet
75 mg PO DAILY Qty: 16 0RF
aspirin 81 mg Tablet,Chewable
81 mg PO DAILY Qty: 30 0RF
lisinopril 5 mg Tablet
5 mg PO DAILY Qty: 30 0RF
Discharge Orders:
Discharge Patient (As Directed); Ordered 10/01/25
Ordered By: Bruce Bass
Discharge Date and Time
Discharge Date/Time: 10/01/25 17:15
Print Language: ISRAELI
--- NOTE | 2025-10-01 17:32 | PTCARENOTE ---
Pt given dc instructions , halter monitor in place at time of dc Pt left via wc
[2025-10-03 00:29] LABS: Beta-2-Glycoprotein I Ab. IgA <10 SAU (<=20); Beta-2-Glycoprotein I Ab. IgG <10 SGU (<=20); Beta-2-Glycoprotein I Ab. IgM <10 SMU (<=20)
== END 2025-10-01 17:15 | disposition home or self-care (01) | DRG 64 ==
LOC: IMU 02:07
PROVIDERS: Internal Medicine; Internal Medicine Cardiovascular Disease; Physician Assistant Medical; Registered Nurse Critical Care Medicine; Student in an Organized Health Care Education/Training Program; ADMITTING PHYSICIAN Hospitalist; ATTENDING PHYSICIAN General Practice; CONSULT PHYSICIAN Nuclear Medicine Nuclear Cardiology; CONSULT PHYSICIAN Psychiatry & Neurology Neurology; EMERGENCY PHYSICIAN Emergency Medicine; FAMILY PHYSICIAN Family Medicine
PROC: B24BZZ4 Ultrasonography of Heart with Aorta, Transesophageal (ICD-10-PCS; 2025-09-28)
DX: I63.9 Cerebral infarction, unspecified (principal); I61.8 Other nontraumatic intracerebral hemorrhage; H53.462 Homonymous bilateral field defects, left side; R47.01 Aphasia; I10 Essential (primary) hypertension; Z79.82 Long term (current) use of aspirin; Z79.02 Long term (current) use of antithrombotics/antiplatelets; Z82.3 Family history of stroke; Z82.49 Family history of ischemic heart disease and other diseases of the circulatory system; R29.701 NIHSS score 1
CPT/HCPCS: 0042T; 70450; 70496; 70498; 70551; 80048; 80053; 80061; 82607; 82746; 82962; 83036; 83735; 84443; 84484; 85025; 85027; 85300; 85302; 85306; 85610; 85613; 85652; 85730; 86038; 86140; 86146; 86147; 86148; 92610; 93005; 93306; 93312; 93320; 93325; 93970; 96374; 97116; 97129; 97162; 97166; 97530; 97535; 99285; Q9967

== ENCOUNTER 2025-10-21 18:13 | Inpatient (IN) | payer OTHER, SELFPAY ==
[2025-10-21] VITALS (10 sets, daily range): BP systolic 139–168; BP diastolic 80–98; BMI 24.4
[2025-10-21 15:13] LABS: Glucose - Point of Care 181 mg/dl (70-99)
[2025-10-21 15:23] LABS: Hematocrit 41.3 % (39.0-52.0); Hemoglobin 14.7 g/dL (13.0-18.0); Mean Corp Hgb Conc. 35.6 g/dL (33.0-37.0); Mean Corpuscular Volume 81.9 fL (80.0-94.0); Nucleated Red Blood Cells % 0 % (-); Platelet Count 282 10^3/uL (130-400); Red Cell Dist. Width 11.9 % (11.5-14.5)
[2025-10-21 15:33] LABS: INR 1.10; PT 14.3 Sec (11.4-14.6)
[2025-10-21 15:34] LABS: APTT 33.6 Sec (23.4-35.0)
[2025-10-21 15:44] LABS: ALT (SGPT) 22 U/L (0-50); AST (SGOT) 33 U/L (17-59); Albumin 4.8 g/dl (3.5-5.0); Alkaline Phosphatase 107 U/L (38-126); Blood Urea Nitrogen 11 mg/dl (9-20); Calcium 9.6 mg/dl (8.4-10.2); Carbon Dioxide 26 mmol/L (22-30); Chloride 102 mmol/L (98-107); Glucose 162 mg/dl (70-99); Potassium 3.8 mmol/L (3.5-5.1); Sodium 135 mmol/L (135-145); Total Protein 7.8 g/dl (6.3-8.2); eGFR > 60.00
[2025-10-21 15:56] LABS: Troponin I < 0.012 ng/ml
--- NOTE | 2025-10-21 16:05 | ED.GENMED ---
History of Present Illness
General
Chief Complaint: Dizziness
Source: patient, records, spouse, previous radiology exam and previous hospital records
Exam Limitations: altered mental status
Time Seen by Provider: 10/21/25 15:46
Nursing documentation reviewed up to this point in time: agreed with
History of Present Illness
History of Present Illness:
45-year-old male few weeks ago admitted with a stroke discharged with aspirin and Plavix for 21 days now just on aspirin, he had some peripheral field deficits on the left prior to discharge she states is getting better with some exercises this
morning he has been having some issues with short-term memory, also his feet turned cold, rubbed his feet, no headache no nausea no vomiting, RN in triage confirms that the patient has short-term memory with her questioning, brought back for
facilitated workup CT scan etc. no seizure history my review of his MRI showed he had occipital and temporal lobe stroke
Past History
Past History
ED Past Medical History: CVA; Negative Seizures
ED Past Surgical History: None
Social History
Tobacco: Non-smoker
Alcohol: None
Drug: None
Personal:
Living: with family
Employment: Employed
Phy Exam
Physical Exam
Physical Exam:
Physical Exam
General: no apparent distress, not acutely ill
Neck: No tongue bite
Heart: s1/s2 regular rate and rhythm, no murmur. equal radial pulses.
Lungs: no acute respiratory distress. clear bilaterally
Abdomen: Nontender
Neuro: alert and oriented. no focal neurological deficits normal finger-nose bilaterally positive short-term memory�
Skin: no rash
Psychiatric: cooperative
Extremities: no edema.
Course
Orders/Labs/Results
Orders:
Orders
10/21/25 15:08
CT Head W/o Iv Contrast Urgent
Comment:
Reason For Exam: confisuion cva
10/21/25 15:11
Electrocardiogram (*1) Urgent
Reason for Study: Other
Other Reason for Exam: Possible Stroke
Bedside Glucose- Treatment ONCE
EKG- Treatment ONCE
10/21/25 15:16
Complete Blood Count/With Diff Urgent
Comprehensive Metabolic Panel Urgent
PTT Urgent
Prothrombin Time Urgent
Troponin I Urgent
10/21/25 15:58
EEG [Rapid Point of Care EEG (ED/ICU ONLY)] Q1H
Indications for use:: Altered Mental Status
Abnormal Lab Results
10/21/25 10/21/25
15:12 15:16
Glucose 162 H mg/dl
(70-99)
POC Glucose 181 H mg/dl
(70-99)
10/21/25 15:16
10/21/25 15:16
Vital Signs
Initial and Last Documented VS:
Initial Vital Signs
Temp Pulse Resp BP Pulse Ox
98.1 F 86 18 163/95 100
10/21/25 14:56 10/21/25 14:56 10/21/25 14:56 10/21/25 14:56 10/21/25 14:56
Last Documented Vital Signs
Temp Pulse Resp BP Pulse Ox
98.1 F 86 18 163/95 100
10/21/25 14:56 10/21/25 14:56 10/21/25 14:56 10/21/25 14:56 10/21/25 16:07
MDM/Problems Addressed
Differential Diagnosis Includes:
Nonconvulsive status intracerebral hemorrhage psychosomatic
MDM/Problems Addressed:
Memory loss
Chronic conditions affecting care: Neurological disorder
Acute Exacerbation and/or Progression of Chronic Illness: Neurological disorder
*Radiology
Radiology exam reviewed: preliminary read by ED provider
*Pulse Oximetry
SaO2: 100
Oxygen Mode of Delivery: Room air
Patient hypoxic: no
*EKG
Interpreted by ED Provider?: Yes
Interpretation: normal
Comparison EKG: no comparison EKG present
Heart Rate: 78
Rate: normal
Rhythm: sinus
Ischemia: no ischemia
*Weigher And Grader Interpretation
Rate: normal
Interpretation: normal
Heart Rate: 78
Rhythm: sinus
*Critical Care Note
Total Time (30-74mins, 75-104mins- exclusive of procedures): 30
Update Note
Update Note:
Update patient with several hours of short-term memory loss recent occipital temporal lobe CVA 2 history of seizures, CT of the head looks okay to my eye formal report pending, will check EEG, message sent to hospitalist and neurologist
ED Attending Note
-
Portions of this chart may have been created with voice recognition software.� Occasional wrong word or��sound alike� substitutions may have occurred due to the inherent limitations of voice recognition software.
Discharge Plan
Departure
Prescriptions:
No Action
atorvastatin 40 mg Tablet
80 mg PO QPM Qty: 30 0RF
clopidogrel 75 mg Tablet
75 mg PO DAILY Qty: 16 0RF
aspirin 81 mg Tablet,Chewable
81 mg PO DAILY Qty: 30 0RF
lisinopril 5 mg Tablet
5 mg PO DAILY Qty: 30 0RF
Referrals:
Prudencio Carrasquillo MD [Family Provider, Family Practice]
Interventions
Interventions:
*Risk Screen - Suicide Last Done: 10/21/25 14:56
*General Assessment Last Done: 10/21/25 14:56
*ED COVID-19 Vaccine History Last Done: 10/21/25 14:56
*ED Influenza Vaccine History Last Done: 10/21/25 14:56
Discharge Date and Time
Print Language: SLOVENIAN
--- NOTE | 2025-10-21 16:53 | HPS.HSE ---
Addendum entered and electronically signed by Jayson Fischer MD 10/21/25 18:03:
This is an addendum to the H&P written by Bladimir Mckeon on 10/21/2025. �Patient seen and examined independently with resident.
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 �No numbness or tingling, speaking difficulty, slurred speech, focal weakness at this time.
He was recently admitted from 09/27 to 10/01 for ringing in the ears and visual field deficits. �He was found to have CVA of right posterior cerebral artery/rght vertebral artery, occipital/posterior middle/superior right temporal lobe with small
component of hemorrhagic transformation within the region of infarction. Later found to have vertebralHe underwent EHSAN which was unremarkable. �He had prolonged sinus pauses with syncope thought to be due to hypoperfusion of the brainstem and repeat
CTA showed no progression of the right vertebral artery occlusion and resolution of the right COMPUTER SYSTEMS SECURITY ADMINISTRATOR occlusion. �Permanent pacemaker was not recommended and cooker sulfate was recommended.
Vital signs unremarkable.
Labs unremarkable.
CT head shows evolutionary changes of right occipital infarction. �No acute intracranial abnormality.
Patient with acute memory loss concerning for further infarct versus possible seizures after recent CVA. �Cerebral did not show any seizure activity. �Check CTA head and neck. �Continue aspirin and statin. �Neurology consulted. �Need to follow-up on
results of cooker sulfate.
Original Note:
Family Physician
-
Family Physician: Prudencio Carrasquillo
Chief Complaint
-
Dizziness
History of Present Illness
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
exercises. Today he presents presents for evaluation of dizziness. Patient does not recall the event. History is obtained from his . states that this morning he felt dizzy while sitting on the couch and his feet turned cold. He called
his , rubbed his feet, patient continued to feel dizzy. He denies headache, nausea, vomiting. called EMS. ER nurse confirms that patient has short-term memory with questioning, not able to recall why he was brought to the hospital.
He has no history of seizure in the past. Recent brain MRI from 09/28/2025 showed subacute infarction of right occipital and right temporal lobe, right vertebral occlusion on CTA previously.
Medical History
Past Medical History
Past Medical History: Reports CVA
Past Surgical History: Reports None
Social History
Tobacco: Non-smoker
Alcohol: None
Drug: None
Personal:
Living: With Family
Employment: Employed
Family History
Family History: Not pertinent
Allergies / Home Medications
Allergies reflects when Allergies were last updated in [facility].
Home Medications with original date entered in [facility]
Allergy/Medication List:
Allergies
Allergy/AdvReac Type Severity Reaction Status Date / Time
No Known Allergies Allergy Verified 10/21/25 16:48
Home Medications
aspirin 81 mg chewable tablet 81 mg PO DAILY Blood clot prevention/tx #30 tabs 10/01/25
lisinopril 5 mg tablet 5 mg PO DAILY Blood pressure #30 tabs 10/01/25
atorvastatin 80 mg tablet 80 mg PO QPM 10/21/25
cholecalciferol (vitamin D3) 25 mcg (1,000 unit) tablet 25 mcg PO DAILY 10/21/25
cyanocobalamin (vitamin B-12) 1,000 mcg tablet 1,000 mcg PO DAILY 10/21/25
famotidine 40 mg tablet 40 mg PO DAILYPRN PRN gerd 10/21/25
Review of Systems
-
History Source: Family
A 12 point ROS was completed and negative except as noted: Yes
Physical Exam
Vital Signs
Vital Signs
Temp Pulse Resp BP Pulse Ox
98.1 F 85 20 150/90 100
10/21/25 14:56 10/21/25 16:30 10/21/25 16:30 10/21/25 16:16 10/21/25 16:30
Physical Exam
General: Comfortable and Conversant
HEENT: NormoCephalic, Anicteric and Moist mucous membranes
Respiratory: Clear
Cardiac: S1/S2 and Regular Rhythm
GI: Soft, Non Tender, Non Distended and Normal Bowel Sounds
Musculoskeletal: No Edema
Skin: Warm and Dry
Neuro: Awake, Alert, Oriented, No Motor Deficits, Nonfocal/grossly intact and No Sensory Deficits; No Slurred Speech, Facial Droop or Tremors
Hematologic/Lymphatic: No Lymphadenopathy
Psych: Calm
Laboratory Results
-
10/21/25 15:16
10/21/25 15:16
Laboratory Results
PT 14.3 Sec (11.4-14.6) 10/21/25 15:16
INR 1.10 10/21/25 15:16
APTT 33.6 Sec (23.4-35.0) 10/21/25 15:16
Total Bilirubin 0.4 mg/dl (0.2-1.3) 10/21/25 15:16
AST 33 U/L (17-59) 10/21/25 15:16
ALT 22 U/L (0-50) 10/21/25 15:16
Alkaline Phosphatase 107 U/L (38-126) 10/21/25 15:16
Troponin I < 0.012 ng/ml 10/21/25 15:16
Data Reviewed
-
CT Scan: Report Reviewed by me and Discussed with Physician
MRI: Report Reviewed by me and Discussed with Physician
Lab Data: Labs Reviewed by me and Discussed with Physician
Impression/Plan
-
IMPRESSION:
Dizziness/ Short-term memory loss
Recent history of COMPUTER SYSTEMS SECURITY ADMINISTRATOR stroke.
History of peripheral field deficit on left
History of hypertension
History of hyperlipidemia
PLAN:
Dizziness/short-term memory loss
Differential diagnosis: Seizures, stroke, stress related, arrhythmia.
Suspect seizure as a complication with recent COMPUTER SYSTEMS SECURITY ADMINISTRATOR stroke.
Head CT is unremarkable r/o stroke/hemorrhage
EKG shows no acute changes, normal sinus rhythm.
Check EEG to monitor brain activity for seizure
No past history of seizure
Check brain MRI, check B12
Neurologic checks
?Check head/neck CTA to r/o new occlusion/infarction, since his previous imaging notes to have multiple infarction which had hemorrhagic transformation.
Consult neurology for further evaluation
Recent history of COMPUTER SYSTEMS SECURITY ADMINISTRATOR stroke
recently admitted with CVA- occlusion of right posterior cerebral artery, subacute infarction of right occipital and right temporal, right vertebral artery
completed course of ASA and plavix for 21 days, now only on ASA-- continue
Check MRI of brain
History of peripheral field deficit on left
present on previous discharge, have been improving with exercise
History of hypertension
Continue lisinopril
History of hyperlipidemia
Continue high intensity statin
Full code
SCD
Regular diet
--- NOTE | 2025-10-21 20:40 | PTCARENOTE ---
Admitted pt from ED to room 2253 via stretcher, able to move self from stretcher to bed. Denies pain, dizziness, or vision changes at this time. AAOx3, clear speech, no neurological deficit noted, no loss of sensation or strength all limbs, neuro
check WNL. NIH 0. Pt unable to recall reason he came to the hospital and initial testing done to him. Able to answer all admission questionnaires. SR on tele monitor, HR 90's. Bp stable. Pox 94% RA. Oriented pt to room and call light, staying
overnight, updated both on POC. Call fields within reach.
--- NOTE | 2025-10-21 23:44 | W.PN.UPDATE ---
Update Note
Progress Note Update
CT angiogram shows interval change in the appearance of the proximal right vertebral artery compared to CT angiography on September 29. Findings suggesting slight propagation of the thrombosis/dissection of the proximal right vertebral artery.
I discussed findings with Dr. Schuster who recommended that I discuss with [facility] to look over the images. I discussed with [place] [facility] who recommended that we do CT with perfusion to guide further management. MRI brain ordered for
tomorrow. [place] [facility] recommended holding off Plavix for now.
On my initial assessment patient in the emergency room he did not have any neurological impairment to warrant administration of TNK.
[2025-10-22 04:57] VITALS: BP 138/91
[2025-10-22 05:20] LABS: Hematocrit 40.6 % (39.0-52.0); Hemoglobin 14.3 g/dL (13.0-18.0); Mean Corp Hgb Conc. 35.2 g/dL (33.0-37.0); Mean Corpuscular Volume 83.0 fL (80.0-94.0); Platelet Count 277 10^3/uL (130-400); Red Cell Dist. Width 11.8 % (11.5-14.5)
[2025-10-22 05:39] LABS: Blood Urea Nitrogen 6 mg/dl (9-20); Calcium 9.8 mg/dl (8.4-10.2); Carbon Dioxide 24 mmol/L (22-30); Chloride 105 mmol/L (98-107); Estimated Creatinine Clearance > 125 ml/min; Glucose 107 mg/dl (70-99); Potassium 4.0 mmol/L (3.5-5.1); Sodium 138 mmol/L (135-145); eGFR > 60.00
[2025-10-22 06:29] LABS: Vitamin B12 495 pg/ml (239-931)
--- NOTE | 2025-10-22 07:30 | W.RAPID.EEG ---
Rapid EEG
-
Procedure Date: 10/21/25
Patient Status: Emergency Room
Results:
IMPRESSION:
No evidence of status epilepticus
Patient was awake and drowsy
Recording Information:
Diagnostic Recording Time: 01:40:42 (101 minutes)
Recording 1: [email or web address]
Start Time: Oct 21, 2025 16:30 PM End Time: Oct 21, 2025 18:11 PM
Recording Technique: This EEG was obtained using a 10 lead, 8 channel system positioned circumferentially without any parasagittal coverage (rapid EEG). Computer selected EEG is reviewed as well as background features and all clinically significant
events. Clarity algorithm utilized and implemented to provide analysis of underlying activity and seizure detection used to facilitate reading. ICD-10 Code [id number]
Clinical History: DOUG ESPINOSA is a 45 year old Other, Other: SEIZURE patient undergoing EEG to screen for non-convulsive status epilepticus.
[2025-10-22 07:37] VITALS: BP 137/83
[2025-10-22] MEDS: LOW STRENGTH ASPIRIN 81 MG PO (09:01)
[2025-10-22] MEDS: THIAMINE INJECTION 100 MG IV (09:01)
[2025-10-22] MEDS: VITAMIN B-12 1000 MCG PO (09:01)
[2025-10-22 09:41] LABS: C-Reactive Protein < 5.00 mg/L (0.0-10.00)
--- NOTE | 2025-10-22 09:41 | CON.NEURO ---
Addendum entered and electronically signed by Cleveland Caldwell MD 10/22/25 13:23:
Studies reviewed.
I have personally examined the patient. I reviewed and agree with the POPULATION HEALTH COACH's Note.
My addenda:
Awake, alert, interactive. No acute distress.
Speech intact.
Follows 2-step requests w/o difficulty. No tremor.
Extra-ocular movements grossly intact.
Facial movements full and symmetric. Hearing intact to normal conversational volume.
Normal UE movements bilaterally.
Neck: full ROM.
Chest: no dyspnea
Heart: no JVD
Ext: (-) Clubbing, (-) Cyanosis, (-) Edema
IMPRESSIONS/RECOMMENDATIONS:
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
Unclear etiology for the thrombosis at this time. Unclear if the radiology reading of the expansion of the thrombosis is associated with the patient's cognitive issues at the time.
Differential diagnosis at this time would include recurrent embolic stroke, focal onset seizure with impaired awareness, and hypotension
Check new MRI of brain without contrast
Restart clopidogrel in addition to the patient's usual aspirin without loading dose
Check EEG
Initiate levetiracetam 1000 mg twice a day
Follow orthostatic blood pressures
Check P2Y12 assay to determine if aspirin is efficacious
Plan on reevaluation of the patient's vertebral artery clot 1 month after this hospitalization by repeated CTA
Rehabilitation evaluations and treatment
D/W patient / family
All questions answered.
Will continue to follow patient.
Original Note:
Documented by User: Leatha Mcmullen NP 10/22/25 11:33
Neuro Assessment/Plan
Assessment
45-year-old male with history of recent LEAD ATHLETE stroke discharged on 10/01/2025 with aspirin and Plavix for 21 days now only on aspirin, now presents to [facility] on 10/21/2025 with dizziness and short term memory issues.
Head/neck CTA 10/21/2025: Interval change in the appearance of the proximal right vertebral artery, compared to CT angiography of September 29, 2025. Findings would suggest propagation of thrombosis/dissection of the proximal right vertebral artery.
Subjectively, slightly diminished conspicuity of enhancement of the superior basilar artery and the proximal posterior cerebral arteries. This could possibly be technical related to differences in contrast enhancement from technical factors. The
possibility of slight diminishment of contrast enhancement from interval change in the proximal right vertebral artery is also considered.
CT perfusion 10/22/2025:
CBF <30% Volume: 0 (estimate of ischemic core)
Tmax >6 second Volume: 0 (critically hypoperfused tissue)
CBF/Tmax Mismatch Volume: 0 (ischemic penumbra)
CBF/Tmax Mismatch Ratio: None
Hypoperfusion Index (Tmax >10s/Tmax >6s): N/A (predicts rate of collateral flow, infarct growth, and clinical outcome)
CBV Index (rCBV in Tmax >6s):
Head CT 10/21/2025: Comparing to previous examinations, evolutionary changes of region of right occipital infarction. No CT evidence for acute intracranial abnormality.
Head/neck CTA 09/29/2025: Evolution of known moderate subacute right occipital lobe infarct. No evidence of hemorrhage. Stable occlusion of the proximal right vertebral artery at its origin. Resolution of previous right posterior cerebral artery
near complete occlusion. Improved patency of the left posterior cerebral artery.
Brain MRI 09/28/2025: Focal area of acute to subacute infarction involving the posterior and medial right occipital lobe, also extending to involve the posteromedial and superior right temporal lobe. There is abnormal signal involving the choroid
plexus within the atria of the right lateral ventricle, which is likely acute to subacute infarction of the choroid plexus as well. There is a small component of associated hemorrhagic transformation within this region of infarction. Punctate focus
of acute to subacute infarct involving the inferior aspect of the right cerebellar hemisphere.
NECK CTA 09/26/2025:
1. ACUTE NEAR OCCLUSION of the PROXIMAL RIGHT VERTEBRAL ARTERY at the origin with a 5 mm segment of severe luminal narrowing caused by thrombosis, embolus, or focal dissection.
2. 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
3. No CTA evidence for stenosis, occlusion, or dissection in either internal carotid artery.
HEAD CTA 09/26/2025:
1. ACUTE COMPLETE OCCLUSION of the P3 (quadrigeminal segment) of the RIGHT POSTERIOR CEREBRAL ARTERY accounting for the ischemic changes in the right occipital lobe seen on the CT brain perfusion examination.
2. Moderate hypoplasia of the P1 segment of the left posterior cerebral artery.
3. 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
4. 3.0 cm arachnoid cyst in the right side of the posterior fossa.
Head CT 09/26/2025:
1. No CT evidence for acute intracranial hemorrhage or transcortical infarct.
2. 3.9 cm arachnoid cyst in the right side of the posterior fossa causing mild mass effect on the right cerebellar hemisphere and cerebellar vermis.
3. 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
Differentials: seizure vs hypoperfusion from hypotension secondary to right vertebral occlusion vs acute ischemic stroke
Plan
-obtain brain MRI without contrast as planned
-obtain EEG to rule out seizure activity
-start Levetiracetam 1000 mg BID
-seizure precautions
-aspirin assay 511 which indicates that he is an aspirin responder, continue aspirin 81 mg daily
-follow up with vascular neurosurgery
-start clopidogrel 75 mg daily for 21 days and obtain P2Y12 testing in 7 days as outpatient
-continue atorvastatin 80 mg daily
All questions encouraged and answered, plan of care discussed with Dr. Caldwell, patient and
Consultation
Order
Date of Consultation: 10/22/25
Requesting Provider: hospitalist/ Dr. Bladimir Adrian
Reason for Consult: dizziness, memory issues
Subjective/Objective
Subjective Data
Date of Service: October 22, 2025
45-year-old male with history of recent LEAD ATHLETE stroke discharged on 10/01/2025 with aspirin and Plavix for 21 days now only on aspirin, he had some peripheral field deficits on the left prior to discharge, states that the symptoms are getting
better with exercises. Yesterday he presented for evaluation of dizziness and short term memory loss. History is obtained from his . states that morning of admission he felt dizzy while sitting on the couch and his feet turned cold. He
called his , rubbed his feet, patient continued to feel dizzy. called EMS. He has no history of seizure in the past. He was recently admitted from 09/27 to 10/01 for ringing in the ears and visual field deficits. He was found to have
CVA of right posterior cerebral artery/right vertebral artery, occipital/posterior middle/superior right temporal lobe with small component of hemorrhagic transformation within the region of infarction. Brain MRI from 09/28/2025 showed subacute
infarction of right occipital and right temporal lobe, right vertebral occlussion. He underwent EHSAN which was unremarkable. He had prolonged sinus pauses with syncope thought to be due to hypoperfusion of the brainstem and repeat CTA showed no
progression of the right vertebral artery occlusion and resolution of the right LEAD ATHLETE occlusion. �Permanent pacemaker was not recommended and monitoring coordinator was recommended. Yesterday, CT head showed evolutionary changes of right occipital
infarction. No acute intracranial abnormality. CT angiogram shows interval change in the appearance of the proximal right vertebral artery compared to CT angiography on September 29. Findings suggesting slight propagation of the thrombosis/dissection
of the proximal right vertebral artery.Labs unremarkable. VSS. Not a TNK candidate due to recent stroke. Currently no headache or dizziness. Currently feels memory back to normal.
Taken from previous neurology note from 09/26/2025
'History of Present Illness:
This is a 45-year-old right-handed male who has presented to the hospital on 09/26/25 with report of dizziness, dysarthria, and left-sided vision loss. Patient reports that for the past week he has occasional seen 'flickering stars' in his vision,
sometimes associated with a headache. Yesterday (09/26/25), he was in his usual state when at 2044 he was sitting on the edge of his been when his suddenly became dizzy, heard a strange sound in both ears lasting a few seconds, and his speech became
dysarthric for 2-3 minutes. His called EMS and upon their arrival the patient noticed that he could only see one bootmaker, he was unable to see the second person standing on his left side. He also notes developing a right-sided headache and
neck discomfort. NIHSS on arrival was 2 for a full hemianopia. CT head was obtained and is negative for any acute abnormalities, ASPECT score 10. CTA head/neck demonstrated near occlusion of the proximal right vertebral artery and complete occlusion
of the right LEAD ATHLETE P3 segment. CT brain perfusion was negative for any area of core infarct but demonstrated a 23ml ischemic penumbra in the right occipital lobe, consistent with the patient's symptoms. Per [facility] neurology consultation, he was
not a candidate for TNK due to low NIHSS. He was not a candidate for IAT due to P3 occlusion being too distal for vascular access. He was loaded with DAPT in the ER. Patient reports that today (09/27/25), his left-sided vision loss remains unchanged.
He describes this as seeing 'black spots' in his left-sided vision. His head and neck pain have resolved. He denies any dizziness, speech/swallow difficulty, numbness, and weakness. He denies any history of stroke or blood-clotting issues in the
past and was not taking any blood thinning medications.
Neurologic Examination:
The patient is awake, alert and oriented x 3. He is able to follow commands and answer questions appropriately. There is no aphasia or dysarthria. On cranial nerve assessment, pupils are 3 mm bilateral, round and reactive to light and accommodation.
There is a left upper quadrant hemianopia. Extraocular movements are intact. Facial sensations are intact and bilaterally symmetrical, there is no facial asymmetry. Hearing is intact bilaterally to normal conversation volume. Tongue palate and
uvula are midline. Sternocleidomastoid strengths are full bilaterally. Motor strengths are 5/5 bilateral upper and lower extremities on medical research Bouton scale. There is no drift or involuntary movement noted. Deep tendon reflexes are 2+
bilateral upper and lower extremities and Babinski is absent bilaterally. There was no extinction noted on double simultaneous stimulation. Coordination is intact by finger to nose bilaterally.
Neuro Imaging:
1. CT Head 09/26/25: No CT evidence for acute intracranial hemorrhage or transcortical infarct. 3.9 cm arachnoid cyst in the right side of the posterior fossa causing mild mass effect on the right cerebellar hemisphere and cerebellar vermis. Severe
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 ASPECT score: 10.
2. CTA head/neck 09/26/25: ACUTE NEAR OCCLUSION of the PROXIMAL RIGHT VERTEBRAL ARTERY at the origin with a 5 mm segment of severe luminal narrowing caused by thrombosis, embolus, or focal dissection. Moderate to severe hypoplasia of the left
vertebral artery. No CTA evidence for stenosis, occlusion, or dissection in either internal carotid artery. ACUTE COMPLETE OCCLUSION of the P3 (quadrigeminal segment) of the RIGHT POSTERIOR CEREBRAL ARTERY accounting for the ischemic changes in the
right occipital lobe seen on the CT brain perfusion examination. Moderate hypoplasia of the P1 segment of the left posterior cerebral artery. 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 3.0 cm arachnoid
cyst in the right side of the posterior fossa.
3. CT brain perfusion 09/26/25: CBF 0ml, Tmax 23ml.
Differentials for the patient's presentation include:
1. Left upper quadrant hemianopsia likely due to an acute right occipital ischemic stroke in the setting of R LEAD ATHLETE P3 occlusion; etiology is concerning for a cardioembolic source.
2. Right posterior fossa arachnoid cyst, asymptomatic.
Patient has the following risk factors for their symptoms: None.
IV Tenecteplase/IAT candidacy: Per [facility] neurology consultation, he was not a candidate for TNK due to low NIHSS. He was not a candidate for IAT due to P3 occlusion being too distal for vascular access.'
Objective Data
Vital Signs
Temp Pulse Resp BP Pulse Ox
98.7 F 72 20 137/83 97
10/22/25 07:37 10/22/25 09:00 10/22/25 07:37 10/22/25 07:37 10/22/25 09:08
Lab Results
10/22/25 05:03
10/22/25 05:03
PT 14.3 Sec (11.4-14.6) 10/21/25 15:16
INR 1.10 10/21/25 15:16
APTT Cancelled 10/22/25 05:24
Sodium 138 mmol/L (135-145) 10/22/25 05:03
Potassium 4.0 mmol/L (3.5-5.1) 10/22/25 05:03
BUN 6 mg/dl (9-20) L 10/22/25 05:03
Glucose 107 mg/dl (70-99) H 10/22/25 05:03
Calcium 9.8 mg/dl (8.4-10.2) 10/22/25 05:03
Vitamin B12 495 pg/ml (426-931) 10/22/25 05:03
Patient Allergies
No Known Allergies Allergy (Verified 10/21/25 16:48)
CVA Assessment
NIH Stroke Score
Level of Consciousness: 0 - Alert
LOC Questions: 0-Answers both correctly
LOC Commands: 0-Performs both correctly
Best Horizontal Gaze: 0-Normal
Visual Dominguez: 0=Normal, no visual loss
Facial Palsy: 0=Normal, symmetrical
Motor - Right Arm: 0=No drift 10 seconds
Motor - Left Arm: 0=No drift 10 seconds
Motor - Right Le-No drift 5 seconds
Motor - Left Le-No drift 5 seconds
Limb Ataxia: 0-Absent
Sensation: 0-Normal
Best Language: 0-No aphasia
Dysarthria: 0-Normal
Extinction and Inattention: 0-No abnormality
NIH Total Score:: 0
Tenecteplase Contraindications
Inclusion and Exclusion criteria reviewed: Yes
Reasons for NON-Tx with Thrombolytics POSSIBLE Exclusions: Recent ischemic stroke within 3 months
IAT Contraindications: NIHSS < 6
Review of Systems
-
History Source: Patient and Family
Constitutional: No Symptoms
EENT: No Symptoms Reported
Respiratory: No Symptoms
Cardiac: No Symptoms
Abdomen/GI: No Symptoms
Genitourinary: No Symptoms
Musculoskeletal: No Symptoms
Skin: No Symptoms
Neuro: Dizzy and Other (memory issues)
Endocrine: No Symptoms
Hematologic / Lymphatic: No Symptoms
Allergy / Immunology: No Symptoms
Physical Exam
-
General: Well Developed, Well Nourished and No Apparent Distress
Eyes: No Ptosis and PERRLA
HEENT: Normocephalic and Atraumatic
Neck: Full Range of Motion
Respiratory: No Dyspnea
Cardiac: No JVD
GI: Non-distended
Skin: Unremarkable
Extremities: No Clubbing, No Cyanosis and No Edema
Psych: Unremarkable
Extended Neurological Exam
Mood & Affect: Mood Unremarkable and Affect Unremarkable
Attention Span & Concentration: Awake, Alert and Interactive
Memory: Unremarkable and Able to Recall
Tremor: Hand Tremor Absent and Head Tremor Absent
Involuntary Movement: None
Speech: Quality Unremarkable, Quantity Unremarkable and Rate of Production Unremarkable
Cranial Nerve II: Left Eye: Pupillary Reactivity Unremarkable, Pupillary Size Unremarkable and Visual Dominguez Intact (no overt visual deficit today)
Cranial Nerve II: Right Eye: Pupillary Reactivity Unremarkable, Pupillary Size Unremarkable and Visual Dominguez Intact (no overt visual deficit today)
Cranial Nerves III, IV, : Extraocular Movement: Extraocular Movement Full in all Directions
Cranial Nerve VII: Facial Symmetry: Normal Facial Symmetry
Cranial Nerve VIII: Hearing: Unremarkable Hearing to Normal Conversational Volume
Cranial Nerve XI: Shoulder Shrug: Unremarkable
Cranial Nerve XII: Tongue Protusion: Midline
Muscle Strength, Overall: Full Throughout
Pronator Drift: No Drift in Upper Extremities and No Drift in Lower Extremities
Deep Tendon Reflexes: Unremarkable Throughout
Touch Sensation: Double Simultaneous Stimulation Unremarkable
Coordination: [id number] Testing Unremarkable and Ugyz-Tzau-Ubvg movements intact bilaterally
Data Reviewed
-
CT-A: Report Reviewed and Image Reviewed
CT-Perfusion: Report Reviewed and Image Reviewed
CT Head: Report Reviewed and Image Reviewed
MRI Head: Report Reviewed and Image Reviewed
Medical Test Reports: Report Reviewed
Labs: Report Reviewed
Lipid Profile: Report Reviewed
HgbA1C: Report Reviewed
Reviewed with: Physician, Patient and Family
Old Records: Summarized
Medications
-
Active Medications
Generic Name Dose Route Start Last Admin
Trade Name Freq PRN Reason Stop Dose Admin
Acetaminophen 650 mg 10/21/25 20:25
Acetaminophen 325 Mg Tablet PO 11/18/25 20:24
Q4HPRN PRN
mild pain/BURCH/temp> 100.4F
Aspirin 81 mg 10/22/25 08:00 10/22/25 09:01
Aspirin 81 Mg Chewable Tablet PO 11/19/25 07:59 81 mg
DAILY ZAINA Administration
Atorvastatin Calcium 80 mg 10/22/25 18:00
Atorvastatin (Lipitor) 80 Mg Tablet PO 11/19/25 17:59
QPM ZAINA
Bisacodyl 10 mg 10/21/25 20:25
Bisacodyl 10 Mg Rectal Suppository RECTAL 11/18/25 20:24
[id number] PRN
constipation
Cyanocobalamin (Vitamin B12) 1,000 mcg 10/22/25 08:00 10/22/25 09:01
Cyanocobalamin (Vitamin B-12) 500 Mcg Tablet PO 11/19/25 07:59 1,000 mcg
DAILY ZAINA Administration
Polyethylene Glycol 17 grams 10/21/25 20:25
Polyethylene Glycol Powder 17 Grams Packet PO 11/18/25 20:24
DAILYPRN PRN
constipation
Senna/Docusate Sodium 1 tablet 10/21/25 20:25
Docusate W/Senna (Izabela-Colace) Tablet PO 11/18/25 20:24
BIDPRN PRN
constipation
Thiamine HCl 100 mg 10/22/25 08:00 10/22/25 09:01
Thiamine (100 Mg/Ml) 2 Ml Vial IV 10/25/25 07:59 100 mg
DAILY ZAINA Administration
Home Medications
�Medication �Instructions �Recorded
aspirin 81 mg chewable tablet 81 mg PO DAILY Blood clot 10/01/25
prevention/tx #30 tabs
lisinopril 5 mg tablet 5 mg PO DAILY Blood pressure #30 10/01/25
tabs
atorvastatin 80 mg tablet 80 mg PO QPM 10/21/25
cholecalciferol (vitamin D3) 25 25 mcg PO DAILY 10/21/25
mcg (1,000 unit) tablet
cyanocobalamin (vitamin B-12) 1,000 mcg PO DAILY 10/21/25
1,000 mcg tablet
famotidine 40 mg tablet 40 mg PO DAILYPRN PRN gerd 10/21/25
Past History
Past History
ED Past Medical History: CVA; Negative Seizures
ED Past Surgical History: None
Family/Social History
Tobacco: Non-smoker
Alcohol: None
Drug: None
Personal:
Living: with family
Employment: Employed

Documented by User: Cleveland Caldwell MD 10/22/25 13:14
CVA Assessment
NIH Stroke Score
NIH Total Score:: 0
[2025-10-22 09:43] LABS: VerifyNow Aspirin 511 ARU
[2025-10-22 10:47] LABS: Folate 8.2 ng/ml (2.76-20)
[2025-10-22 11:33] VITALS: BP 135/85
[2025-10-22] MEDS: KEPPRA 1000 MG PO ×2 (11:34→20:12)
[2025-10-22] MEDS: PLAVIX 75 MG PO (11:34)
--- NOTE | 2025-10-22 12:54 | PTCARENOTE ---
Patient received at change of shift resting in the bed. Alert to self, place, and time. Neurological check WDL. NIH zero. SR on telemetry. The patient denies pain, denies feeling lightheaded or dizzy. The patient reports that he feel better than
yesterday and feels that his memory has improved. EEG done at bedside. remains at bedside with patient. Call fields within reach. Plan of care discussed. Care ongoing.
--- NOTE | 2025-10-22 13:44 | CM ---
spoke to pt and in room, he is prev indep, lives with his in a 2 story home with 2 steps to enter. he denies any dc planning needs or dme's. plan is for dc to home when medically stable.
--- NOTE | 2025-10-22 13:52 | EEG.RPT ---
Electroencephalogram Report
Recording
Date of EE10/22/25
Type of EEG: Routine
Length of EEG recordin minutes
Done with Video Recording: Yes
Patient Status: Inpatient
Recording Conditions: Awake and Drowsy
Hyperventilation Performed: No
Photic Stimulation Performed: Yes
Report
LESS THAN 1 HOUR REPORT
LESS THAN 1 HOUR EEG INTERPRETATION:
Mildly abnormal EEG due to rare, low amplitude left temporal sharp waves
CLINICAL CORRELATION:
This study was mildly suggestive of a focal abnormality in the left temporal lobe. No electrical seizures were recorded.
Clinical correlation is advised.
METHODS:
A 21 channel digitized electroencephalogram (EEG) was performed. The 10/20 international system of electrode placement was used with ECG and lateral/vertical eye movements recorded. The [employer] quantitative EEG system was utilized.
ELECTROENCEPHALOGRAPHER IMPRESSION(S):
Quality of study
Good
Background
In maximal wakefulness, there was a low amplitude anterior-posterior voltage gradient of alpha frequency.
There were no significant asymmetries of background activity noted.
Sleep
Drowsiness present
Hyperventilation
Not performed
Photic Stimulation
No activation of the record
ECG
Unremarkable
Abnormal EEG Activity
Low�medium amplitude, left temporal (T3 maximal) sharp waves on 2 occasions were noted
[2025-10-22 15:03] VITALS: BP 139/93
--- NOTE | 2025-10-22 15:07 | W.PN.HOSP.TC ---
Today's Communication/Plan
-
DAPT
EEG
keppra
PT
Assessment / Plan
Assessment / Plan
Physical Exam
General: Comfortable and Conversant
HEENT: NormoCephalic, Anicteric and Moist mucous membranes
Respiratory: Clear
Cardiac: S1/S2 and Regular Rhythm
GI: Soft, Non Tender, Non Distended and Normal Bowel Sounds
Musculoskeletal: No Edema
Skin: Warm and Dry
Neuro: Awake, Alert, Oriented, No Motor Deficits, Nonfocal/grossly intact and No Sensory Deficits; No Slurred Speech, Facial Droop or Tremors
Hematologic/Lymphatic: No Lymphadenopathy
Psych: Calm
Dizziness/short-term memory loss
Recent history of [employer] stroke
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
-Differential diagnosis: recurrent embolic stroke, focal onset seizure with impaired awareness, and hypotension
MRi Brain : No new acute intracranial abnormality noted. Evolving right occipital lobe infarct/encephalomalacia.
-Plavix and ASA
-EEG
-Keppra 1000mg BID - Suspect seizure as a complication with recent [employer] stroke
-Orthostatics tomorrow AM
-PT/OT
-statin
#slight propagation of the thrombosis/dissection of the proximal right vertebral artery
-Plan on reevaluation of the patient's vertebral artery clot 1 month after this hospitalization by repeated CTA
-Neuro recs
-DAPT
History of peripheral field deficit on left
present on previous discharge, have been improving with exercise
History of hypertension
Continue lisinopril
History of hyperlipidemia
Continue high intensity statin
Full code
HSQ
Regular diet
Total time spent on today's encounter was 51 minutes which included time spent in counseling the patient/family regarding diagnosis and treatment plan as listed above, goals of care, and symptom management. Case was discussed with nursing staff,
specialists, and care coordinators/case management. All labs and imaging personally reviewed by me. Remainder the time spent in detailed review of previous records, lab data, imaging, and other medical provider documentation.
Anticipated Discharge: 24 - 48 hours
Subjective/Interval History
-
Date of Service: October 22, 2025
no acute events overnight
Objective Data
-
Labs:
Laboratory Results
10/22/25 10/22/25
05:03 05:24
WBC 7.1
Hgb 14.3
Hct 40.6
Plt Count 277
APTT Cancelled
Sodium 138
Potassium 4.0
Chloride 105
Carbon Dioxide 24
BUN 6 L
Creatinine 0.7
Glucose 107 H
Calcium 9.8
Vital Signs:
Vital Signs
Temp Pulse Resp BP Pulse Ox
98.2 F 68 20 135/85 99
10/22/25 15:03 10/22/25 13:00 10/22/25 15:03 10/22/25 11:33 10/22/25 15:03
I&O
10/21/25 10/22/25 10/23/25
06:59 06:59 06:59
Intake Total 240 / 240
Output Total 795 / 795
Balance -555 / -555
Review of Systems
-
History Source: Patient and Family
Constitutional: Denies Fever or Chills
EENT: Reports Decreased Vision; Denies Runny Nose
Respiratory: Denies Cough or Trouble Breathing
Cardiac: Denies Chest Pain, Palpitations or Syncope
Abdomen/GI: Denies Abdominal Pain, Nausea, Vomiting, Diarrhea or Constipated
Genitourinary: Denies Dysuria
Neuro: Denies Dizzy, Headache, Weakness or Ataxia
Data Reviewed
-
MRI: Report Reviewed by me
Labs: Labs Reviewed by me
[2025-10-22] MEDS: LIPITOR 80 MG PO (17:18)
[2025-10-22] MEDS: HEPARIN 5000 UNITS SC ×2 (18:06→23:41)
[2025-10-22 18:37] VITALS: BP 129/84
[2025-10-22 23:03] VITALS: BP 118/83
[2025-10-23] VITALS (9 sets, daily range): BP systolic 119–139; BP diastolic 75–94; PULSE 59–75; O2SAT 97
--- NOTE | 2025-10-23 03:11 | PTCARENOTE ---
Assumed care on pt at 1900, aaox3, able to make needs known and voice complaints. Denies dizziness, headache or visual changes, steady gait with ambulations using rolling walker. No neurological deficits noted. SR/SB on tele monitor, HR 55-60's. Pox
97% RA. BP stable. Updated pt and spouse with POC and in agreement, call fields within reach.
[2025-10-23 05:29] LABS: Hematocrit 40.5 % (39.0-52.0); Hemoglobin 14.2 g/dL (13.0-18.0); Mean Corp Hgb Conc. 35.1 g/dL (33.0-37.0); Mean Corpuscular Volume 82.7 fL (80.0-94.0); Platelet Count 259 10^3/uL (130-400); Red Cell Dist. Width 12.1 % (11.5-14.5)
[2025-10-23 05:58] LABS: ALT (SGPT) 18 U/L (0-50); AST (SGOT) 29 U/L (17-59); Albumin 4.3 g/dl (3.5-5.0); Alkaline Phosphatase 106 U/L (38-126); Blood Urea Nitrogen 6 mg/dl (9-20); Calcium 9.9 mg/dl (8.4-10.2); Carbon Dioxide 26 mmol/L (22-30); Chloride 104 mmol/L (98-107); Estimated Creatinine Clearance 122 ml/min; Glucose 103 mg/dl (70-99); Potassium 4.3 mmol/L (3.5-5.1); Sodium 137 mmol/L (135-145); Total Protein 7.3 g/dl (6.3-8.2); eGFR > 60.00
[2025-10-23] MEDS: HEPARIN 5000 UNITS SC (08:04)
[2025-10-23] MEDS: LOW STRENGTH ASPIRIN 81 MG PO (08:05)
[2025-10-23] MEDS: THIAMINE INJECTION 100 MG IV (08:05)
[2025-10-23] MEDS: VITAMIN B-12 1000 MCG PO (08:05)
[2025-10-23] MEDS: KEPPRA 1000 MG PO (08:05)
[2025-10-23] MEDS: PLAVIX 75 MG PO (08:05)
--- NOTE | 2025-10-23 10:05 | W.PN.NEURO.1 ---
Today's Communication / Plan
-
Continue newly initiated levetiracetam 1000 mg BID
-seizure precautions
-aspirin assay 511 which indicates that he is an aspirin responder, continue aspirin 81 mg daily
-follow up with vascular neurosurgery as outpatient, Dr. Peter Barron
- Continue newly initiated clopidogrel 75 mg daily for 21 days and obtain P2Y12 blood work testing in 7 days as outpatient
-continue atorvastatin 80 mg daily
Neuro Assessment/Plan
Assessment
45-year-old male with history of recent [employer] stroke discharged on 10/01/2025 with aspirin and Plavix for 21 days now only on aspirin, now presents to [facility] on 10/21/2025 with dizziness and short term memory issues.
Head/neck CTA 10/21/2025: Interval change in the appearance of the proximal right vertebral artery, compared to CT angiography of September 29, 2025. Findings would suggest propagation of thrombosis/dissection of the proximal right vertebral artery.
Subjectively, slightly diminished conspicuity of enhancement of the superior basilar artery and the proximal posterior cerebral arteries. This could possibly be technical related to differences in contrast enhancement from technical factors. The
possibility of slight diminishment of contrast enhancement from interval change in the proximal right vertebral artery is also considered.
CT perfusion 10/22/2025:
CBF <30% Volume: 0 (estimate of ischemic core)
Tmax >6 second Volume: 0 (critically hypoperfused tissue)
CBF/Tmax Mismatch Volume: 0 (ischemic penumbra)
CBF/Tmax Mismatch Ratio: None
Hypoperfusion Index (Tmax >10s/Tmax >6s): N/A (predicts rate of collateral flow, infarct growth, and clinical outcome)
CBV Index (rCBV in Tmax >6s):
Head CT 10/21/2025: Comparing to previous examinations, evolutionary changes of region of right occipital infarction. No CT evidence for acute intracranial abnormality.
Head/neck CTA 09/29/2025: Evolution of known moderate subacute right occipital lobe infarct. No evidence of hemorrhage. Stable occlusion of the proximal right vertebral artery at its origin. Resolution of previous right posterior cerebral artery
near complete occlusion. Improved patency of the left posterior cerebral artery.
Brain MRI 09/28/2025: Focal area of acute to subacute infarction involving the posterior and medial right occipital lobe, also extending to involve the posteromedial and superior right temporal lobe. There is abnormal signal involving the choroid
plexus within the atria of the right lateral ventricle, which is likely acute to subacute infarction of the choroid plexus as well. There is a small component of associated hemorrhagic transformation within this region of infarction. Punctate focus
of acute to subacute infarct involving the inferior aspect of the right cerebellar hemisphere.
NECK CTA 09/26/2025:
1. ACUTE NEAR OCCLUSION of the PROXIMAL RIGHT VERTEBRAL ARTERY at the origin with a 5 mm segment of severe luminal narrowing caused by thrombosis, embolus, or focal dissection.
2. 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
3. No CTA evidence for stenosis, occlusion, or dissection in either internal carotid artery.
HEAD CTA 09/26/2025:
1. ACUTE COMPLETE OCCLUSION of the P3 (quadrigeminal segment) of the RIGHT POSTERIOR CEREBRAL ARTERY accounting for the ischemic changes in the right occipital lobe seen on the CT brain perfusion examination.
2. Moderate hypoplasia of the P1 segment of the left posterior cerebral artery.
3. 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
4. 3.0 cm arachnoid cyst in the right side of the posterior fossa.
Head CT 09/26/2025:
1. No CT evidence for acute intracranial hemorrhage or transcortical infarct.
2. 3.9 cm arachnoid cyst in the right side of the posterior fossa causing mild mass effect on the right cerebellar hemisphere and cerebellar vermis.
3. 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
EEG suggested to sharp waves which, as less than 5, are of unclear significance. Both erupted from the left temporal lobe
MRI of brain failed to demonstrate an acute lesion and only prior injury was demonstrated
Differentials: seizure vs hypoperfusion from hypotension secondary to right vertebral occlusion vs acute ischemic stroke
Plan
Continue newly initiated levetiracetam 1000 mg BID
-seizure precautions
-aspirin assay 511 which indicates that he is an aspirin responder, continue aspirin 81 mg daily
-follow up with vascular neurosurgery as outpatient, Dr. Peter Barron
- Continue newly initiated clopidogrel 75 mg daily for 21 days and obtain P2Y12 blood work testing in 7 days as outpatient
-continue atorvastatin 80 mg daily
Will follow as outpatient
Subjective/Objective
Subjective Data
Date of Service: October 23, 2025
Objective Data
Vital Signs
Temp Pulse Resp BP Pulse Ox
36.8 C 63 18 135/94 97
10/23/25 08:02 10/23/25 09:40 10/23/25 08:02 10/23/25 09:40 10/23/25 09:28
Lab Results
10/23/25 04:58
10/23/25 04:58
PT 14.3 Sec (11.4-14.6) 10/21/25 15:16
INR 1.10 10/21/25 15:16
APTT Cancelled 10/22/25 05:24
Sodium 137 mmol/L (135-145) 10/23/25 04:58
Potassium 4.3 mmol/L (3.5-5.1) 10/23/25 04:58
BUN 6 mg/dl (9-20) L 10/23/25 04:58
Glucose 103 mg/dl (70-99) H 10/23/25 04:58
Calcium 9.9 mg/dl (8.4-10.2) 10/23/25 04:58
Vitamin B12 495 pg/ml (239-931) 10/22/25 05:03
Patient Allergies
No Known Allergies Allergy (Verified 10/21/25 16:48)
Data Reviewed
-
CT-A: Report Reviewed
MRI Head: Report Reviewed
EEG: Report Reviewed
Labs: Report Reviewed
Reviewed with: Physician
Old Records: Summarized
--- NOTE | 2025-10-23 10:51 | PTCARENOTE ---
Patient received at change of shift resting in the bed. Ambulated to bathroom with RW, standby assist. SB/SR on telemetry. Orthostatic vital signs completed as ordered. Oxygen saturation 97-98% on RA. Neurological check WDL. NIH zero. Physical
therapy in to work with patient. Call fields within reach. Bed in lowest position, wheels locked. Care ongoing.
--- NOTE | 2025-10-23 11:54 | W.PN.HOSP.TC ---
Addendum entered and electronically signed by Berto Casey MD 10/24/25 16:22:
[id number]
Original Note:
Today's Communication/Plan
-
DAPT x 21 days, then asa alone
keppra
Vascular NSG outpatient, Neuro f/u outpt
PCP outpatient
Statin
Assessment / Plan
Assessment / Plan
Physical Exam
General: Comfortable and Conversant
HEENT: NormoCephalic, Anicteric and Moist mucous membranes
Respiratory: Clear
Cardiac: S1/S2 and Regular Rhythm
GI: Soft, Non Tender, Non Distended and Normal Bowel Sounds
Musculoskeletal: No Edema
Skin: Warm and Dry
Neuro: Awake, Alert, Oriented, No Motor Deficits, Nonfocal/grossly intact and No Sensory Deficits; No Slurred Speech, Facial Droop or Tremors
Hematologic/Lymphatic: No Lymphadenopathy
Psych: Calm
Dizziness/short-term memory loss
Recent history of [employer] stroke
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
#slight propagation of the thrombosis/dissection of the proximal right vertebral artery
-Differential diagnosis: recurrent embolic stroke, focal onset seizure with impaired awareness, and hypotension
MRi Brain : No new acute intracranial abnormality noted. Evolving right occipital lobe infarct/encephalomalacia.
EEG suggested to sharp waves which, as less than 5, are of unclear significance. Both erupted from the left temporal lobe
-Continue newly initiated levetiracetam 1000 mg BID
-seizure precautions
-aspirin assay 511 which indicates that he is an aspirin responder, continue aspirin 81 mg daily
-follow up with vascular neurosurgery as outpatient, Dr. Peter Barron
- Continue newly initiated clopidogrel 75 mg daily for 21 days and obtain P2Y12 blood work testing in 7 days as outpatient
-continue atorvastatin 80 mg daily
-PT/OT
-rheum eval - if work up from vascular nsg not fruitful
--Plan on reevaluation of the patient's vertebral artery clot 1 month after this hospitalization by repeated CTA
-No driving
History of peripheral field deficit on left
present on previous discharge, have been improving with exercise
-no driving
History of hypertension
Continue lisinopril
History of hyperlipidemia
Continue high intensity statin
Full code
HSQ
Regular diet
More than 30 minutes spent in discharge including
Final examination of the patient
Summarizing hospital stay
Instructions for continuing care to all relevant caregivers
Preparation of discharge records, prescriptions, and referral forms
Total time spent (in minutes): 36
Anticipated Discharge: Today
Subjective/Interval History
-
Date of Service: October 23, 2025
no acute events overnight
Objective Data
-
Labs:
Laboratory Results
10/23/25
04:58
WBC 5.1
Hgb 14.2
Hct 40.5
Plt Count 259
Sodium 137
Potassium 4.3
Chloride 104
Carbon Dioxide 26
BUN 6 L
Creatinine 0.8
Glucose 103 H
Calcium 9.9
Total Bilirubin 0.7
AST 29
ALT 18
Alkaline Phosphatase 106
Vital Signs:
Vital Signs
Temp Pulse Resp BP Pulse Ox
98.3 F 58 16 125/76 98
10/23/25 11:17 10/23/25 11:17 10/23/25 11:17 10/23/25 11:17 10/23/25 11:17
I&O
10/22/25 10/23/25 10/24/25
06:59 06:59 06:59
Intake Total 240 / 240 240 / 240
Output Total 795 / 795
Balance -555 / -555 240 / 240
Review of Systems
-
History Source: Patient
All other systems: Not reviewed unless documented
Physical Exam
-
General: Well Developed, Well Nourished, No Apparent Distress and Comfortable; Negative Fever
HEENT: Normocephalic and Atraumatic
Respiratory: Clear to Auscultation and Non Labored Respirations; Negative Wheezes or Crackles
Cardiac: Regular Rhythm and S1/S2; Negative Murmur
GI: Soft, Nontender, Nondistended and Normal Bowel Sounds
Musculoskeletal: No Clubbing and No Edema
Skin: Warm and Dry
Neuro: Awake, Alert and Oriented
Data Reviewed
-
MRI: Report Reviewed by me
Labs: Labs Reviewed by me
--- NOTE | 2025-10-23 12:34 | W.DS.TRANS ---
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
-
Discharge Instructions:
Discharge Diagnosis/Procedures dizziness and short term memory issues
propagation of thrombosis/dissection of the
proximal right vertebral artery
Diet Low Cholesterol,Low Fat
Activity As tolerated
Additional Activity seizure precautions
Driving Restrictions No driving
Blood Work cbc and cmp in 1 week - Primary Care f/u
Obtain P2Y12 blood work testing in 7 days as
outpatient - Primary care f/u
Consider HELGA and autoimmune work up outpatient
Others Tests as per vascular neurosurgery
Instructions:
Stand-Alone Forms:
Changes to Home Medications: Yes
Discharge Medications:
DC Medications w/original date entered in [employer]
aspirin 81 mg chewable tablet 81 mg PO DAILY Blood clot prevention/tx #30 tabs 10/01/25
lisinopril 5 mg tablet 5 mg PO DAILY Blood pressure #30 tabs 10/01/25
atorvastatin 80 mg tablet 80 mg PO QPM 10/21/25
cholecalciferol (vitamin D3) 25 mcg (1,000 unit) tablet 25 mcg PO DAILY 10/21/25
cyanocobalamin (vitamin B-12) 1,000 mcg tablet 1,000 mcg PO DAILY 10/21/25
famotidine 40 mg tablet 40 mg PO DAILYPRN PRN gerd 10/21/25
clopidogrel 75 mg tablet 75 mg PO DAILY 19 days #19 tabs 10/23/25
levetiracetam 500 mg tablet 1,000 mg (2 x 500 mg) PO BID 30 days #120 tabs 10/23/25
Home Medication Changes
clopidogrel 75 mg tablet 75 mg PO DAILY 19 days #19 tabs 10/23/25
levetiracetam 500 mg tablet 1,000 mg (2 x 500 mg) PO BID 30 days #120 tabs 10/23/25
Pending Results: No
--- NOTE | 2025-10-23 12:55 | CM ---
spoke to pt/ in room. our dme supplier at does not take his insurance. he can use [employer] which cannot deliver today, still unsure of percentage of coverage, pt/ want to order from [employer], found one for $27.
--- NOTE | 2025-10-23 13:47 | PTCARENOTE ---
Reviewed discharge instructions with patient and spouse. Telemetry pack and PIV INT removed. Patient's to drive him home. Discharged via wheelchair with staff escort.
== END 2025-10-23 13:55 | disposition home or self-care (01) | DRG 57 ==
LOC: IVU 18:13
PROVIDERS: Student in an Organized Health Care Education/Training Program; ADMITTING PHYSICIAN Hospitalist; ATTENDING PHYSICIAN Internal Medicine; EMERGENCY PHYSICIAN Emergency Medicine; FAMILY PHYSICIAN Family Medicine; OTHER PHYSICIAN Psychiatry & Neurology Neurology
PROC: XX20X89 Monitoring of Brain Electrical Activity, Computer-aided Detection and Notification, New Technology Group 9 (ICD-10-PCS; 2025-10-21)
DX: I69.311 Memory deficit following cerebral infarction (principal); I65.01 Occlusion and stenosis of right vertebral artery; I10 Essential (primary) hypertension; E78.5 Hyperlipidemia, unspecified; H54.62 Unqualified visual loss, left eye, normal vision right eye; Z79.899 Other long term (current) drug therapy; Z79.82 Long term (current) use of aspirin; Z79.02 Long term (current) use of antithrombotics/antiplatelets
CPT/HCPCS: 0042T; 70450; 70496; 70498; 70551; 80048; 80053; 82607; 82746; 82962; 84484; 85025; 85027; 85576; 85610; 85652; 85730; 86140; 93005; 95813; 95816; 97116; 97162; 99291; Q9967